=== PATIENT | female | born 1990 | race Caucasian/White ===

== ENCOUNTER 2016-02-20 20:45 | Observation (INO) | payer MEDICAID ==
[2016-02-20 21:04] LABS: Collection Type CLEAN CATCH
[2016-02-20 21:08] LABS: COMPLETE URINE MICROSCOPIC? YES
[2016-02-20 21:20] VITALS: BP 124/62; PULSE 100
[2016-02-20 21:34] LABS: Barbiturate,Urine NEG. (NEGATIVE); Methadone,Urine NEG. (NEGATIVE)
[2016-02-20 21:37] LABS: Bacteria RARE /HPF (NEGATIVE); Epithelial Cells MANY /HPF (FEW); WBC 0-2 /HPF (0-5)
== END 2016-02-20 22:05 | disposition home or self-care (01) ==
LOC: OB 20:45 → UNDOADMOB 20:45 → UNDODISOB 22:05
PROVIDERS: ADMIT Family Medicine; ATTEND Family Medicine
DX: Z34.83 Encounter for supervision of other normal pregnancy, third trimester (principal)
CPT/HCPCS: 81000; G0378

== ENCOUNTER 2016-02-21 14:38 | Observation (INO) | payer MEDICAID ==
[2016-02-21 14:56] VITALS: BP 129/60; PULSE 98
--- NOTE | 2016-02-21 16:55 | XRAY ---
Indication: lie and KESHIA. Limited OB ultrasound performed and compared to November 08, 2015. Again there is a single viable intrauterine now in cephalic presentation. Normal four-chamber heart with heart rate 132 bpm. Four-quadrant KESHIA is 21.1 cm, previously 12.8 cm. Comment: Preliminary report was given.
== END 2016-02-21 16:10 | disposition home or self-care (01) ==
LOC: OB 14:38
PROVIDERS: ADMIT Family Medicine; ATTEND Family Medicine
DX: Z34.83 Encounter for supervision of other normal pregnancy, third trimester (principal)
CPT/HCPCS: 59025; 76815; G0378

== ENCOUNTER 2016-02-26 16:04 | Observation (INO) | payer MEDICAID ==
[2016-02-26 16:43] VITALS: O2SAT 98
[2016-02-26 18:12] VITALS: PULSE 88
--- NOTE | 2016-02-26 20:24 | XRAY ---
Indication: well-being. Ultrasound biophysical profile study performed. Comparison: None There is a single viable injury uterine with heart rate 131 bpm. 4 quadrant KESHIA is 21.2 cm. Largest pocket is 6.6 cm. 2 points given for breathing, movements, tone, and amniotic fluid volume. Impression: Total biophysical profile score is 8 out of 8.
[2016-02-26 21:04] VITALS: BP 119/56
== END 2016-02-26 20:10 | disposition home or self-care (01) ==
LOC: OB 16:04 → UNDOADMOB 16:04 → UNDODISOB 20:10
PROVIDERS: ADMIT Family Medicine; ATTEND Family Medicine
DX: Z34.83 Encounter for supervision of other normal pregnancy, third trimester (principal)
CPT/HCPCS: 59025; 76819; G0378

== ENCOUNTER 2016-02-29 15:43 | Observation (INO) | payer MEDICAID ==
[2016-02-29 21:02] VITALS: BP 111/55; PULSE 92
== END 2016-02-29 20:35 | disposition home or self-care (01) ==
LOC: OB 15:43
PROVIDERS: ADMIT Family Medicine; ATTEND Family Medicine
DX: Z34.83 Encounter for supervision of other normal pregnancy, third trimester (principal)
CPT/HCPCS: 59025; G0378

== ENCOUNTER 2016-03-03 16:54 | Observation (INO) | payer MEDICAID ==
[2016-03-03 18:02] VITALS: BP 108/54; PULSE 90
--- NOTE | 2016-03-03 22:42 | XRAY ---
Indication: Size greater than dates. 2-dimensional OB ultrasound performed. Comparison: August 18, 2015 Again there is a single viable intrauterine in breech presentation. Normal four-chamber heart with heart rate of 131 bpm. Normal three-vessel cord and cord insertion. Images of the head, spine, stomach, kidneys, and bladder appear unremarkable. Placenta is again posterior fundal without abruption/previa. Cervical length measures 4.2 cm. BPD measures 9.07 cm corresponding to 36 weeks 5 days. HC measures 32.43 cm corresponding to 36 weeks 5 days. AC measures 32.15 cm corresponding to 36 weeks 0 days. FL measures 7.15 cm corresponding to 36 weeks 4 days. KESHIA is 19.4 cm. Impression: Again single viable intrauterine with mean gestational age of 36 weeks 4 days. Normal progression in the . No new/acute findings.
== END 2016-03-03 18:25 | disposition home or self-care (01) ==
LOC: MED SURG 16:54
PROVIDERS: ADMIT Family Medicine; ATTEND Family Medicine
DX: Z34.83 Encounter for supervision of other normal pregnancy, third trimester (principal)
CPT/HCPCS: 59025; 76805; G0378

== ENCOUNTER 2016-03-06 17:00 | Observation (INO) | payer MEDICAID ==
[2016-03-06 19:05] VITALS: BP 110/53; PULSE 86
== END 2016-03-06 18:30 | disposition home or self-care (01) ==
LOC: UNDOADMOB 17:00 → OB 17:00 → UNDODISOB 18:30
PROVIDERS: ADMIT Family Medicine; ATTEND Family Medicine
DX: Z34.83 Encounter for supervision of other normal pregnancy, third trimester (principal)
CPT/HCPCS: 59025; G0378

== ENCOUNTER 2016-03-10 16:16 | Observation (INO) | payer MEDICAID ==
[2016-03-10 16:43] VITALS: BP 127/60; PULSE 104
--- NOTE | 2016-03-10 19:46 | XRAY ---
Indication: Evaluate KESHIA. Comparison: March 03, 2016 Limited OB ultrasound again demonstrates a single viable intrauterine now in cephalic presentation. heart rate is 140 bpm. Visualized stomach and bladder unremarkable. Four-quadrant KESHIA is 18.6 cm, previously 19.4 cm. Comment: Preliminary report was given.
== END 2016-03-10 18:25 | disposition home or self-care (01) ==
LOC: OB 16:16
PROVIDERS: ADMIT Family Medicine; ATTEND Family Medicine
DX: Z34.03 Encounter for supervision of normal first pregnancy, third trimester (principal)
CPT/HCPCS: 59025; 76815; G0378

== ENCOUNTER 2016-03-13 14:05 | Observation (INO) | payer MEDICAID ==
[2016-03-13 16:07] VITALS: O2SAT 97
[2016-03-13 16:28] VITALS: BP 112/65; PULSE 86
== END 2016-03-13 16:35 | disposition home or self-care (01) ==
LOC: OB 14:05
PROVIDERS: ADMIT Family Medicine; ATTEND Family Medicine
DX: Z34.83 Encounter for supervision of other normal pregnancy, third trimester (principal)
CPT/HCPCS: 59025; G0378

== ENCOUNTER 2016-03-17 15:40 | Observation (INO) | payer MEDICAID ==
[2016-03-17 19:05] VITALS: BP 126/59; PULSE 96; O2SAT 96
--- NOTE | 2016-03-17 22:07 | XRAY ---
Indication: Evaluate KESHIA. 4 quadrant KESHIA is 20.4 cm. This was previously 18.6 cm on March 10, 2016 exam.
== END 2016-03-17 18:50 | disposition home or self-care (01) ==
LOC: OB 15:40
PROVIDERS: ADMIT Family Medicine; ATTEND Family Medicine
DX: Z34.83 Encounter for supervision of other normal pregnancy, third trimester (principal)
CPT/HCPCS: 59025; 76815; G0378

== ENCOUNTER 2016-03-20 15:32 | Observation (INO) | payer MEDICAID ==
[2016-03-20 16:53] VITALS: BP 107/72; PULSE 96
== END 2016-03-20 16:40 | disposition home or self-care (01) ==
LOC: OB 15:32 → UNDOADMOB 15:32 → UNDODISOB 16:40
PROVIDERS: ADMIT Family Medicine; ATTEND Family Medicine
DX: Z34.83 Encounter for supervision of other normal pregnancy, third trimester (principal)
CPT/HCPCS: 59025; G0378

== ENCOUNTER 2016-03-24 04:32 | Inpatient (IN) | payer MEDICAID ==
[2016-03-24] MEDS ORDERED: Reglan 10 MG/2 ML IV SCH (05:00)
[2016-03-24] MEDS ORDERED: BICITRA 30 ML CUP PO SCH (05:00)
[2016-03-24] MEDS ORDERED: Pepcid 20 MG VIAL IV SCH (05:00)
[2016-03-24] MEDS ORDERED: Lactated Ringers 1,000 ML IV SCH (05:00)
[2016-03-24 05:29] LABS: Mean Cell Volume 84.7 fl (78-100); Mean Corpuscular Hemoglobin 27.9 pg (26-32); Platelet Count 330 K/mm3 (150-450); Red Blood Count 4.37 M/mm3 (4.1-5.4); Red Cell Distribution Width 14.2 % (11.5-14.0)
[2016-03-24] MEDS ORDERED: Lactated Ringers 1,000 ML IV ONE ×2 (05:30→08:36)
[2016-03-24 05:43] LABS: INR 0.98 (0.8-3.0)
[2016-03-24 05:45] LABS: PTT 25.6 SECONDS (25.3-37.0)
[2016-03-24 06:33] LABS: Collection Type VOID
[2016-03-24 06:34] LABS: Bacteria MANY /HPF (NEGATIVE); CALCIUM OXALATE CRYSTALS 0-2 /HPF (NEGATIVE); COMPLETE URINE MICROSCOPIC? YES; Epithelial Cells MANY /HPF (FEW); Mucus MODERATE /HPF (NEGATIVE)
[2016-03-24] MEDS ORDERED: KEFZOL 1 GM ONE (08:04)
--- NOTE | 2016-03-24 09:12 | OP ---
SURGERY DATE: 03/24/16 SURGERY TIME: 739 PREOPERATIVE DIAGNOSIS: 1. TERM INTRAUTERINE . 2. PREVIOUS SECTION X 2. POSTOPERATIVE DIAGNOSIS: SAME, DELIVERED. PROCEDURE: 1. Repeat lower uterine segment transverse incision section. SURGEON: Dr. Pratt. ANESTHESIA: Spinal. BRIEF HISTORY: The patient is a 26 y/o WF presenting now for an elective repeat . The patient was appraised of the risks of the procedure including the risk of wound infection, bleeding requiring transfusion, and possible injury to intraabdominal organs. The patient verbalized her understanding and desired to have the procedure performed. DESCRIPTION OF PROCEDURE: The patient was prepped and draped in the supine position. After adequate regional anesthesia was confirmed, a Pfannenstiel incision was made over the previous scar and carried down sharply through the fascia which was then divided in a horizontal fashion. The rectus muscles were then sharply and bluntly dissected away from the overlying fascia. The peritoneal cavity was then entered. There was noted to be a very thin lower uterine segment. It was scored in its midline and extended using bandage scissors. A WM infant was delivered through the abdominal wound. The cord was doubly clamped and divided between the clamps and the baby was handed off for further care. The placenta was then manually removed from the uterus. The uterus was exteriorized and wrapped in moist gauze. The wound edges were then reapproximated using 1-0 chromic suture in a running, interlocking fashion. The cul-de-sac area was then swabbed clear of blood and amniotic fluid and the uterus was replaced in the abdominal cavity. Paracolic gutters were then also swabbed clear of blood and amniotic fluid. The peritoneum was then repaired using 3-0 chromic suture in a running fashion. The fascia was repaired using 0 Vicryl suture in a running fashion. The skin edges were reapproximated using geraldine. The sponge, needle, and instrument count was reported as correct at the end of the procedure. The patient was taken back to the recovery room. Estimated blood loss was 300 cc.
[2016-03-24] MEDS ORDERED: LANSINOH 40 GM TOP PRN (09:56)
[2016-03-24] MEDS ORDERED: CORTISONE 1% CREAM TP PRN (09:56)
[2016-03-24] MEDS ORDERED: Mylicon 80MG PO PRN (09:56)
[2016-03-24] MEDS ORDERED: CLARITIN 10 MG PO PRN (09:56)
[2016-03-24] MEDS ORDERED: Dulcolax 10 MG SUPP PR PRN (09:56)
[2016-03-24] MEDS ORDERED: Zofran 4 MG/2 ML VIAL IV PRN (09:56)
[2016-03-24] MEDS ORDERED: Narcan 0.4 MG/ML IV PRN (09:56)
[2016-03-24] MEDS ORDERED: Restoril 15 MG PO PRN (09:56)
[2016-03-24] MEDS ORDERED: HOLD NARCOTIC ANALGESICS AND SEDATIVES X24 HR MC PRN (09:56)
[2016-03-24] MEDS ORDERED: DEMEROL 50 MG IV PRN (09:56)
[2016-03-24] MEDS ORDERED: PERCOCET TABLET 5/325MG PO PRN (09:56)
[2016-03-24] MEDS ORDERED: BENADRYL 50 MG/ML IV PRN (09:56)
[2016-03-24] MEDS ORDERED: Anucort-HC SUPPOSITORY PR PRN (09:56)
[2016-03-24] MEDS ORDERED: Nubain 10 MG/ML IV PRN (09:56)
[2016-03-24] MEDS ORDERED: TYLENOL EXTRA STRENGTH 500 MG PO PRN (09:56)
[2016-03-24] MEDS ORDERED: MORPHINE SULFATE 2 MG INJ IV PRN (09:56)
[2016-03-24] MEDS: Dextrose 5%-Lr IV Solution 1000 ML 1,000 ML IV SCH ×2 (14:51→21:55)
[2016-03-24] MEDS: Colace 100 MG PO SCH (21:55)
[2016-03-25 05:29] LABS: BASOPHIL % 0.4 % (0.0-0.4); Eosinophil % 1.3 % (0.00-5.0); Granulocytes % 68.9 % (36.0-66.0); Lymphocytes % 21.1 % (24.0-44.0); Mean Cell Volume 86.9 fl (78-100); Mean Corpuscular Hemoglobin 27.8 pg (26-32); Mean Platelet Volume 9.7 fl (6-9.5); Monocytes % 8.3 % (0.0-12.0); Platelet Count 294 K/mm3 (150-450); Red Blood Count 4.06 M/mm3 (4.1-5.4); Red Cell Distribution Width 14.4 % (11.5-14.0); White Blood Count 12.7 K/mm3 (4.0-10.5)
[2016-03-25] MEDS: MOTRIN 400 MG PO PRN ×3 (08:40→21:58)
[2016-03-25] MEDS ORDERED: DEMEROL 75 MG IM PRN (09:00)
[2016-03-25] MEDS ORDERED: Phenergan 25 MG INJ IM PRN (09:00)
[2016-03-25] MEDS ORDERED: Ambien 10 MG PO PRN (09:56)
[2016-03-25] MEDS ORDERED: Tylenol #3 Tablet PO PRN (09:56)
[2016-03-25] MEDS: Colace 100 MG PO SCH ×2 (10:24→21:58)
[2016-03-25] MEDS: FERREX 150 PO SCH (10:24)
--- NOTE | 2016-03-26 09:29 | PCM.DS ---
Discharge Summary Date of Admission: 03/24/16 04:32 Admitting Physician: PERLA BRYANT Consults: Consults on Case 03/24/16 05:00 Notify Anesthesia Provider ROUTINE Notify Physician OF ADMISSION 03/24/16 09:56 Notify Anesthesia Provider PRN Primary Care Provider: PERLA BRYANT Allergies Allergies No Known Drug Allergies Allergy (Verified 03/17/16 16:05) Hospital Summary - Hospital Course Hospital Course: patient doing very well day #[address] Pratt , follows with Dr Bryant. no problems or concerns after delivery. ambulating and laura po, mild lochia - Vitals & Intake/Output Vital Signs: Vital Signs Temperature 98.0 F 03/25/16 20:00 Pulse Rate 80 03/25/16 20:00 Respiratory Rate 18 03/26/16 02:00 Blood Pressure 128/60 03/25/16 20:00 O2 Sat by Pulse Oximetry 97 03/25/16 08:00 Intake & Output: Intake & Output 03/23/16 03/24/16 03/25/16 03/26/16 11:59 11:59 11:59 11:59 Intake Total 2389 400 Output Total 1000 Balance 1389 400 Weight 110.677 kg - Lab Result Diagrams: 03/25/16 05:00 Micro Results-Entire Visit: Microbiology 03/24/16 07:56 Urine Culture - Preliminary Catherized NO GROWTH TO DATE Discharge Exam General Appearance: no apparent distress, alert Respiratory Exam: normal breath sounds, lungs clear, No respiratory distress Cardiovascular Exam: regular rate/rhythm, normal heart sounds Gastrointestinal/Abdomen Exam: soft, other (incision c/d/i, well approximated) Extremity Exam: normal inspection, normal range of motion Final Diagnosis/Problem List - Final Discharge Diagnosis/Problem (1) delivery delivered Current Visit: Yes Status: Acute Assessment & Plan: doing well - Discharge Disposition: Home, Self-Care Condition: Stable Prescriptions: Discontinued Vits W-Ca,Fe,FA(<1Mg) [] 1 tab PO DAILY Follow up with: PERLA BRYANT [Primary Care Provider] - 1 Week
[2016-03-26] MEDS: Colace 100 MG PO SCH (09:36)
[2016-03-26] MEDS: FERREX 150 PO SCH (09:37)
[2016-03-26] MEDS: MOTRIN 400 MG PO PRN (09:37)
[2016-03-26 11:06] VITALS: BP 116/53; PULSE 84; O2SAT 96
== END 2016-03-26 10:40 | disposition home or self-care (01) | DRG 766 ==
LOC: OB 04:32
PROVIDERS: ADMIT Family Medicine; ATTEND Family Medicine
PROC: 10D00Z1 Extraction of Products of Conception, Low, Open Approach (ICD-10-PCS; principal; 2016-03-24)
DX: O34.211 Maternal care for low transverse scar from previous cesarean delivery (principal); Z3A.39 39 weeks gestation of pregnancy; Z37.0 Single live birth
CPT/HCPCS: 01961; 36415; 59025; 76815; 80307; 81000; 85025; 85027; 85610; 85730; 86850; 86900; 86901; 87086; 94799; G0378; J0690; J2405; L0625

== ENCOUNTER 2019-01-26 10:59 | Emergency (ER) | payer OTHER ==
--- NOTE | 2019-01-26 11:06 | ERPHSYRPT ---
- History of Present Illness Time Seen by Provider: 01/26/19 11:05 Source: patient Exam Limitations: no limitations Physician History: 29 y/o A3 white female presents with one episode of vaginal spotting yesterday morning and a single episode of vaginal spotting this am. pt denies abdominal or vaginal pain. pt denies abnl vaginal discharge. Timing/Duration: yesterday Activites at Onset: none Quality: other Onset Location: other (no pain) Severity of Pain-Max: none Severity of Pain-Current: none Prior abdominal problems: none Sexual intercourse history: non-contributory Modifying Factors: Improves With: nothing Allergies/Adverse Reactions: No Known Drug Allergies Allergy (Verified 01/26/19 11:13) Home Medications: Vits W-Ca,Fe,FA(<1Mg) [] 1 each PO DAILY 01/26/19 [History] Hx Tetanus, Diphtheria Vaccination/Date Given: Yes Hx Influenza Vaccination/Date Given: No Hx Pneumococcal Vaccination/Date Given: No - Past Medical History Pertinent Past Medical History: No - Past Surgical History Past Surgical History: Yes Female Surgical History: Section Other Surgical History: X2 - Social History Smoking Status: Never smoker Exposure to second hand smoke: No Drug Use: none Patient Lives Alone: No Significant Family History: ULCERS - Nursing Vital Signs Nursing Vital Signs: Initial Vital Signs Temperature 98.6 F 01/26/19 11:07 Pulse Rate 104 H 01/26/19 11:07 Respiratory Rate 16 01/26/19 11:07 Blood Pressure 126/83 01/26/19 11:07 O2 Sat by Pulse Oximetry 100 01/26/19 11:07 Pain Scale Pain Intensity 0 - Course Nursing assessment & vital signs reviewed: Yes Ordered Tests: Active Orders 24 hr Category Date Time Status CBC W DIFF Stat Lab 01/26/19 11:32 Completed CMP Stat Lab 01/26/19 11:32 Completed CULTURE,URINE Stat Lab 01/26/19 11:55 Received HCG, Quantitative (Inhouse) Stat Lab 01/26/19 11:32 Received UA W/RFX UR CULTURE Stat Lab 01/26/19 11:55 Completed Lab/Rad Data: Laboratory Result Diagrams 01/26/19 11:32 01/26/19 11:32 Laboratory Results 01/26/19 01/26/19 12 Range/Units 11:55 11:32 11:32 WBC 9.9 (4.0-10.5) K/mm3 RBC 4.27 (4.1-5.4) M/mm3 Hgb 13.3 (12.0-16.0) gm/dl Hct 39.5 (35-47) % MCV 92.5 (78-100) fl MCH 31.1 (26-32) pg MCHC 33.7 (32-36) g/dl RDW 12.8 (11.5-14.0) % Plt Count 341 (150-450) K/mm3 MPV 9.4 (6-9.5) fl Gran % 70.6 H (36.0-66.0) % Eos # (Auto) 0.20 (0-0.5) Absolute Lymphs (auto) 2.09 (1.0-4.6) Absolute Monos (auto) 0.59 (0.0-1.3) Lymphocytes % 21.2 L (24.0-44.0) % Monocytes % 6.0 (0.0-12.0) % Eosinophils % 2.0 (0.00-5.0) % Basophils % 0.2 (0.0-0.4) % Absolute Granulocytes 6.97 H (1.4-6.9) Basophils # 0.02 (0-0.4) Sodium 138 (137-145) mmol/L Potassium 4.4 (3.5-5.1) mmol/L Chloride 105 (98-107) mmol/L Carbon Dioxide 26 (22-30) mmol/L Anion Gap 11.5 (5-15) MEQ/L BUN 9 (7-17) mg/dL Creatinine 0.56 (0.52-1.04) mg/dL Estimated GFR > 60.0 ML/MIN Glucose 101 (74-106) mg/dL Calcium 9.2 (8.4-10.2) mg/dL Total Bilirubin 0.50 (0.2-1.3) mg/dL AST 21 (14-36) U/L ALT 10 (0-35) U/L Alkaline Phosphatase 67 (38-126) U/L Serum Total Protein 7.2 (6.3-8.2) g/dL Albumin 3.8 (3.5-5.0) g/dL Urine Color YELLOW (YELLOW) Urine Appearance SLIGHTLY CLOUDY (CLEAR) Urine pH 6.0 (5-6) Ur Specific [place] 1.019 (1.005-1.025) Urine Protein NEGATIVE (Negative) Urine Ketones NEGATIVE (NEGATIVE) Urine Blood MODERATE (0-5) William/ul Urine Nitrite NEGATIVE (NEGATIVE) Urine Bilirubin NEGATIVE (NEGATIVE) Urine Urobilinogen 2 (0-1) mg/dL Ur Leukocyte Esterase SMALL (NEGATIVE) Urine WBC (Auto) 6-10 (0-5) /HPF Urine RBC (Auto) 0-2 (0-2) /HPF U Epithel Cells (Auto) FEW (FEW) /HPF Urine Bacteria (Auto) NONE (NEGATIVE) /HPF Urine Mucus (Auto) SLIGHT (NEGATIVE) /HPF Urine Culture Reflexed YES (NO) Urine Glucose NEGATIVE (NEGATIVE) mg/dL - Progress Progress: unchanged Air Movement: good Blood Culture(s) Obtained: No Antibiotics given: No Counseled pt/family regarding: lab results, diagnosis, need for follow-up - Departure Departure Disposition: Home Clinical Impression: Vaginal spotting Condition: Stable Critical Care Time: No Referrals: HÉCTOR LEUNG MD [Primary Care Provider] - Additional Instructions: take medications as prescribed. follow up with shop director for further management Prescriptions: Cephalexin Mh 500 mg [Keflex 500 mg] 500 mg PO TID #21 capsule
[2019-01-26 11:37] LABS: Absolute Neutrophil Ct (ANC) 6.97 (1.4-6.9); BASOPHIL % 0.2 % (0.0-0.4); Basophil (Absolute #) 0.02 (0-0.4); Hematocrit 39.5 % (35-47); Hemoglobin 13.3 gm/dl (12.0-16.0); Lymphocyte (Absolute #) 2.09 (1.0-4.6); Lymphocytes % 21.2 % (24.0-44.0); Mean Cell Volume 92.5 fl (78-100); Mean Corpuscular Hemoglobin 31.1 pg (26-32); Mean Corpuscular Hgb Concent. 33.7 g/dl (32-36); Mean Platelet Volume 9.4 fl (6-9.5); Monocyte (Absolute #) 0.59 (0.0-1.3); Neutrophil % 70.6 % (36.0-66.0); Platelet Count 341 K/mm3 (150-450); Red Blood Count 4.27 M/mm3 (4.1-5.4); Red Cell Distribution Width 12.8 % (11.5-14.0); White Blood Count 9.9 K/mm3 (4.0-10.5)
[2019-01-26 11:50] LABS: ALBUMIN 3.8 g/dL (3.5-5.0); ALKALINE PHOSPHATASE 67 U/L (38-126); ANION GAP 11.5 MEQ/L (5-15); BLOOD UREA NITROGEN 9 mg/dL (7-17); CHLORIDE 105 mmol/L (98-107); Calcium 9.2 mg/dL (8.4-10.2); Carbon Dioxide 26 mmol/L (22-30); Creatinine 1 0.56 mg/dL (0.52-1.04); Glucose 101 mg/dL (74-106); Potassium 4.4 mmol/L (3.5-5.1); SGOT/AST 21 U/L (14-36); SGPT/ALT 10 U/L (0-35); SODIUM 138 mmol/L (137-145); Total Protein 7.2 g/dL (6.3-8.2)
[2019-01-26 12:07] LABS: Appearance SLIGHTLY CLOUDY (CLEAR); Bilirubin NEGATIVE (NEGATIVE); Blood MODERATE Ery/ul (0-5); Epithelial Cells FEW /HPF (FEW); Glucose NEGATIVE (NEGATIVE); Ketones NEGATIVE (NEGATIVE); Leukocyte Esterase SMALL (NEGATIVE); Mucus SLIGHT /HPF (NEGATIVE); Nitrite NEGATIVE (NEGATIVE); Protein,Urine Dip NEGATIVE (Negative); RBC 0-2 /HPF (0-2); Specific Gravity 1.019 (1.005-1.025); Urobilinogen 2 mg/dL (0-1)
[2019-01-26] MEDS ORDERED: KEFLEX 500 MG PO ONE ×2 (13:01→13:13)
[2019-01-26] MEDS ORDERED: KEFLEX 500 MG ONE ×2 (13:04→13:16)
[2019-01-26 13:13] VITALS: BP 115/59; PULSE 84; O2SAT 99
== END 2019-01-26 13:21 | disposition home or self-care (01) ==
LOC: ED 10:59
DX: O20.9 Hemorrhage in early pregnancy, unspecified (principal); Z3A.08 8 weeks gestation of pregnancy; O23.41 Unspecified infection of urinary tract in pregnancy, first trimester
CPT/HCPCS: 36415; 80053; 81001; 84702; 85025; 87086; 99283; A9270-GY

== ENCOUNTER 2019-04-10 17:17 | Inpatient (IN) | payer OTHER ==
[2019-04-10] MEDS ORDERED: OB EPIDURAL NAROPIN/SUFENTANIL IN NACL EPIDURAL PRN (17:27)
[2019-04-10] MEDS: CYTOTEC BC SCH ×2 (21:05→21:26)
[2019-04-10 21:40] LABS: Absolute Neutrophil Ct (ANC) 12.23 (1.4-6.9); BASOPHIL % 0.1 % (0.0-0.4); Basophil (Absolute #) 0.02 (0-0.4); Eosinophil % 0.9 % (0.00-5.0); Eosinophil (Absolute #) 0.14 (0-0.5); Hematocrit 37.5 % (35-47); Hemoglobin 13.1 gm/dl (12.0-16.0); Lymphocyte (Absolute #) 2.22 (1.0-4.6); Lymphocytes % 14.6 % (24.0-44.0); Mean Cell Volume 91.7 fl (78-100); Mean Corpuscular Hgb Concent. 34.9 g/dl (32-36); Mean Platelet Volume 9.8 fl (7.5-11.0); Monocyte (Absolute #) 0.61 (0.0-1.3); Neutrophil % 80.4 % (36.0-66.0); Platelet Count 369 K/mm3 (150-450); Red Blood Count 4.09 M/mm3 (4.1-5.4); Red Cell Distribution Width 13.5 % (11.5-14.0); White Blood Count 15.2 K/mm3 (4.0-10.5)
[2019-04-10 21:58] LABS: ALBUMIN 3.7 g/dL (3.5-5.0); ALKALINE PHOSPHATASE 85 U/L (38-126); ANION GAP 10.3 MEQ/L (5-15); BLOOD UREA NITROGEN 5 mg/dL (7-17); CHLORIDE 107 mmol/L (98-107); Calcium 9.5 mg/dL (8.4-10.2); Carbon Dioxide 23 mmol/L (22-30); Creatinine 1 0.44 mg/dL (0.52-1.04); Glucose 85 mg/dL (74-106); Potassium 3.6 mmol/L (3.5-5.1); SGOT/AST 17 U/L (14-36); SGPT/ALT 8 U/L (0-35); SODIUM 136 mmol/L (137-145); Total Protein 7.4 g/dL (6.3-8.2)
[2019-04-10] MEDS: Zofran 4 MG/2 ML VIAL IV SCH (23:48)
[2019-04-11] MEDS: Zofran 4 MG/2 ML VIAL IV SCH ×4 (00:40→10:09)
[2019-04-11 00:59] LABS: Amphetamine,Urine NEGATIVE (NEGATIVE); Barbiturate,Urine NEGATIVE (NEGATIVE); Benzodiazepine,Urine NEGATIVE (NEGATIVE); Cocaine,Urine NEGATIVE (NEGATIVE); Methadone,Urine NEGATIVE (NEGATIVE); Opiate,Urine NEGATIVE (NEGATIVE); PCP,Urine NEGATIVE (NEGATIVE); THC,Urine NEGATIVE (NEGATIVE)
[2019-04-11] MEDS: CYTOTEC BC SCH ×4 (02:23→15:14)
[2019-04-11] MEDS: MORPHINE SULFATE 4 MG INJ IV PRN ×2 (02:57→10:09)
[2019-04-11] MEDS ORDERED: PITOCIN 30 UNITS/ LR 500 ML 500 ML IV ONE (03:59)
[2019-04-11] MEDS ORDERED: Lactated Ringers 1,000 ML IV ONE ×2 (07:50→19:39)
[2019-04-11] MEDS: SUBLIMAZE 100 MCG/2 ML IV PRN ×2 (08:40→11:32)
[2019-04-11] MEDS: Lactated Ringers 1,000 ML IV SCH ×3 (08:55→17:13)
[2019-04-11] MEDS ORDERED: PITOCIN 30 UNITS/ LR 500 ML 500 ML IV SCH (10:00)
[2019-04-11] MEDS ORDERED: CLINDAMYCIN-D5W 600 MG/50 ML*** 600 MG/50 ML BAG IV SCH (13:15)
[2019-04-11] MEDS ORDERED: BICITRA 30 ML CUP PO ONE (17:01)
[2019-04-11] MEDS ORDERED: Pepcid 20 MG VIAL IV ONE (17:01)
[2019-04-11] MEDS ORDERED: Reglan 10 MG/2 ML IV ONE (17:01)
[2019-04-11] MEDS ORDERED: CEFAZOLIN 2 GM-D5W BAG** 2 GM/50 ML ML IV SCH (17:30)
[2019-04-11 18:34] LABS: ABO TYPING A; Antibody Screen NEGATIVE (NEGATIVE); RH TYPING POSITIVE
[2019-04-11] MEDS ORDERED: Versed 2 MG/2 ML Injection ONE (19:31)
[2019-04-11] MEDS ORDERED: DIPRIVAN 200 MG/20 ML IV ONE (19:32)
[2019-04-11] MEDS ORDERED: Xylocaine-Mpf 2% 5 Ml Vial ONE (19:37)
[2019-04-11] MEDS ORDERED: XYLOCAINE 2%/Epi 1:200000 20ML VIAL MPF ONE (19:37)
[2019-04-11] MEDS ORDERED: Pitocin 10 UNITS/ML ONE ×2 (19:57)
[2019-04-11] MEDS ORDERED: PHENYLEPHRINE HCL ONE (20:00)
[2019-04-11] MEDS ORDERED: DEMEROL 50 MG ONE (20:20)
[2019-04-11 20:51] LABS: Hematocrit 29.8 % (35-47)
[2019-04-11 20:52] LABS: Hemoglobin 10.2 gm/dl (12.0-16.0)
[2019-04-11 21:52] VITALS: O2SAT 98
[2019-04-12] MEDS ORDERED: Pitocin 10 UNITS/ML IV PRN (09:45)
[2019-04-12] MEDS: Lactated Ringers 1,000 ML IV SCH (09:48)
[2019-04-12 10:06] VITALS: BP 96/52; PULSE 85
--- NOTE | 2019-04-14 10:27 | OP ---
SURGERY DATE/TIME: 04/11/20191926 PREOPERATIVE DIAGNOSIS: Retained placenta after 17 weeks gestation delivery from demise. POSTOPERATIVE DIAGNOSIS: Retained placenta. PROCEDURE: Ultrasound guided extraction of placenta with D&C with suction. SURGEON: Ernesto Martinez D.O. BURGLARY INVESTIGATOR: power lineman technician. ANESTHESIA: General. ESTIMATED BLOOD LOSS: 200 cc. COMPLICATIONS: None. INDICATIONS: The risks, benefits, indications and alternatives of the procedure were reviewed with the patient prior to procedure. The patient understood the risk of infection, bleeding, bowel injury, bladder injury, ureteral injury, uterine perforation, pelvic infection, thromboembolic disorder associated with the surgery and desires to have this procedure as a possible means to alleviate her current medical condition. DESCRIPTION OF PROCEDURE AND FINDINGS: At this point the patient is taken to the operating room, given general sedation, placed in dorsal lithotomy position. Prepped and draped in the usual sterile fashion. From this point ultrasound was used and was placed over the suprapubic region where visualization revealed her to have an anterior placenta. From this point a weighted speculum is then placed in the patient's vagina and the anterior lip of the cervix is grasped with a single tooth tenaculum. Cervix appeared to be dilated approximately 1 cm and at this point the placenta was noted to be just distal to the external os. Forceps were used and placed on just distal edge of the placenta and was grasped at two different sites and was pulled very gently where it had been followed from the umbilical cord towards the edge of the external os. From this point I continued gentle traction using the ring forceps. The placenta was removed however not in its entirety. From this point a #12 curved suction Vacurette was then placed into the fundus of the uterus. After placing the suction Vacurette, it appeared that the patient had a nonsmooth contour where it was approximately 5 x 6 cm in posterior surface mass-like consistency as well as 3 to 4 cm mass-like consistency on her left fundal region. Suction Vacurette was continued until all the products of conception was removed. The suction Vacurette was then removed and curette was then placed into the fundus of the uterus and curettage was performed in all quadrants of the uterus retrieving the remaining products of conception. From this point there was no bleeding that was noted coming from her cervix. From this point the suction machine was turned off. All instruments were then removed from the patient's vaginal region. The patient was then taken out of the dorsal lithotomy position. The patient was taken out of anesthesia and was taken to the recovery room in stable condition. All instruments and laps were accounted for x2.
== END 2019-04-12 08:53 | disposition home or self-care (01) | DRG 770 ==
LOC: MED SURG 18:49
PROVIDERS: ADMIT Family Medicine; ATTEND Family Medicine
PROC: 10D17ZZ Extraction of Products of Conception, Retained, Via Natural or Artificial Opening (ICD-10-PCS; principal; 2019-04-11)
DX: O03.4 Incomplete spontaneous abortion without complication (principal)
CPT/HCPCS: 36415; 76805; 80053; 80307; 85014; 85018; 85025; 86850; 86900; 86901; 88307; J0690; J2175; J2250; J2270; J2370; J2405; J2590; J2704; J2795; J3010; A9270-GY

== ENCOUNTER 2020-04-21 16:01 | Observation (INO) | payer OTHER ==
[2020-04-21 17:40] VITALS: BP 127/58; PULSE 106
== END 2020-04-21 17:23 | disposition home or self-care (01) ==
LOC: OB 16:01
PROVIDERS: ADMIT Obstetrics & Gynecology; ATTEND Obstetrics & Gynecology
DX: Z34.83 Encounter for supervision of other normal pregnancy, third trimester (principal); Z3A.32 32 weeks gestation of pregnancy
CPT/HCPCS: 59025; G0378

== ENCOUNTER 2020-04-30 16:06 | Observation (INO) | payer OTHER ==
[2020-04-30 17:03] VITALS: BP 120/59; PULSE 82
== END 2020-04-30 17:02 | disposition home or self-care (01) ==
LOC: OB 16:06
PROVIDERS: ADMIT Family Medicine; ATTEND Family Medicine
DX: O24.419 Gestational diabetes mellitus in pregnancy, unspecified control (principal); Z3A.33 33 weeks gestation of pregnancy
CPT/HCPCS: 59025; G0378

== ENCOUNTER 2020-05-06 14:10 | Observation (INO) | payer OTHER ==
[2020-05-06 14:36] VITALS: BP 131/59; PULSE 101
== END 2020-05-06 15:20 | disposition home or self-care (01) ==
LOC: OB 14:10 → UNDOADMOB 14:10 → UNDODISOB 15:20
PROVIDERS: ADMIT Obstetrics & Gynecology; ATTEND Obstetrics & Gynecology
DX: O24.419 Gestational diabetes mellitus in pregnancy, unspecified control (principal); Z3A.34 34 weeks gestation of pregnancy
CPT/HCPCS: 59025; G0378

== ENCOUNTER 2020-05-14 15:52 | Observation (INO) | payer OTHER ==
[2020-05-14 16:15] VITALS: PULSE 99
[2020-05-14 16:55] VITALS: BP 118/73
== END 2020-05-14 16:53 | disposition home or self-care (01) ==
LOC: OB 15:52
PROVIDERS: ADMIT Obstetrics & Gynecology; ATTEND Obstetrics & Gynecology
DX: O24.419 Gestational diabetes mellitus in pregnancy, unspecified control (principal); Z3A.35 35 weeks gestation of pregnancy
CPT/HCPCS: 59025; G0378

== ENCOUNTER 2020-05-19 16:24 | Observation (INO) | payer OTHER ==
[2020-05-19 17:40] VITALS: BP 118/56; PULSE 82
== END 2020-05-19 17:19 | disposition home or self-care (01) ==
LOC: OB 16:24
PROVIDERS: ADMIT Obstetrics & Gynecology; ATTEND Obstetrics & Gynecology
DX: O24.419 Gestational diabetes mellitus in pregnancy, unspecified control (principal); Z3A.36 36 weeks gestation of pregnancy
CPT/HCPCS: 59025; G0378

== ENCOUNTER 2020-05-20 04:51 | Inpatient (IN) | payer OTHER ==
[2020-05-20 05:34] LABS: Amphetamine,Urine NEGATIVE (NEGATIVE); Barbiturate,Urine NEGATIVE (NEGATIVE); Benzodiazepine,Urine NEGATIVE (NEGATIVE); Cocaine,Urine NEGATIVE (NEGATIVE); Methadone,Urine NEGATIVE (NEGATIVE); Opiate,Urine NEGATIVE (NEGATIVE); PCP,Urine NEGATIVE (NEGATIVE); THC,Urine NEGATIVE (NEGATIVE)
[2020-05-20] MEDS ORDERED: SOD CITRATE-CITRIC ACID SOLN PO ONE (08:13)
[2020-05-20] MEDS ORDERED: Reglan 10 MG/2 ML IV SCH (08:15)
[2020-05-20] MEDS ORDERED: Pepcid 20 MG VIAL IV SCH (08:15)
[2020-05-20] MEDS ORDERED: Celestone Soluspan 6MG/ML IM ONE (08:22)
[2020-05-20] MEDS ORDERED: CEFAZOLIN 2 GM-D5W BAG** 2 GM/50 ML ML IV SCH (08:30)
[2020-05-20] MEDS ORDERED: Lactated Ringers 1,000 ML IV SCH (08:30)
[2020-05-20] MEDS ORDERED: Astramorph-Pf 5 MG/10 ML ONE (08:40)
[2020-05-20] MEDS ORDERED: Pitocin 10 UNITS/ML ONE ×2 (08:40→10:37)
[2020-05-20 08:58] LABS: INR 1.09 (0.8-3.0); PROTIME 12.3 SECONDS (9.95-12.35)
[2020-05-20 09:00] LABS: PTT 27.1 SECONDS (25.3-37.0)
[2020-05-20 09:01] LABS: Hematocrit 32.8 % (35-47); Hemoglobin 10.5 gm/dl (12.0-16.0); Mean Cell Volume 86.5 fl (78-100); Mean Corpuscular Hemoglobin 27.7 pg (26-32); Mean Platelet Volume 9.7 fl (7.5-11.0); Platelet Count 366 K/mm3 (150-450); Red Blood Count 3.79 M/mm3 (4.1-5.4); Red Cell Distribution Width 14.1 % (11.5-14.0); White Blood Count 14.8 K/mm3 (4.0-10.5)
[2020-05-20 09:37] LABS: ABO TYPING A; Antibody Screen NEGATIVE (NEGATIVE); RH TYPING POSITIVE
[2020-05-20] MEDS ORDERED: PHENYLEPHRINE HCL ONE (09:48)
[2020-05-20] MEDS ORDERED: MARCAINE 0.5%-EPI 1:200,000 VL IJ ONE (10:03)
[2020-05-20] MEDS ORDERED: Marcaine 0.5%/Epinephrine 10 ML ONE (10:03)
[2020-05-20 11:39] LABS: Appearance CLEAR (CLEAR); Bilirubin NEGATIVE (NEGATIVE); Blood NEGATIVE Ery/ul (0-5); Epithelial Cells FEW /HPF (FEW); Glucose NEGATIVE (NEGATIVE); Ketones NEGATIVE (NEGATIVE); Leukocyte Esterase NEGATIVE (NEGATIVE); Mucus SLIGHT /HPF (NEGATIVE); Nitrite NEGATIVE (NEGATIVE); Protein,Urine Dip NEGATIVE (Negative); Specific Gravity 1.013 (1.005-1.025); Urobilinogen NEGATIVE mg/dL (0-1)
[2020-05-20] MEDS: CEFAZOLIN 2 GM-D5W BAG** 2 GM/50 ML ML IV SCH ×2 (14:28→22:17)
[2020-05-20] MEDS: Dextrose 5%-Lr IV Solution 1000 ML 1,000 ML IV SCH ×2 (14:30→22:15)
[2020-05-20] MEDS ORDERED: MOTRIN 400 MG PO PRN (14:51)
[2020-05-20] MEDS ORDERED: Dermoplast Spray TP PRN (14:51)
[2020-05-20] MEDS ORDERED: Dulcolax 10 MG SUPP PR PRN (14:51)
[2020-05-20] MEDS ORDERED: LANSINOH 40 GM TOP PRN (14:51)
[2020-05-20] MEDS ORDERED: CORTISONE 1% CREAM TP PRN (14:51)
[2020-05-20] MEDS ORDERED: TYLENOL EXTRA STRENGTH 500 MG PO PRN (14:51)
[2020-05-20] MEDS ORDERED: NORCO 5/325 MG PO PRN (14:51)
[2020-05-20] MEDS ORDERED: Mylicon 80MG PO PRN (14:51)
[2020-05-20] MEDS ORDERED: Anucort-HC SUPPOSITORY PR PRN (14:51)
[2020-05-20] MEDS ORDERED: BENADRYL 50 MG/ML IV PRN (14:57)
[2020-05-20] MEDS ORDERED: Zofran 4 MG/2 ML VIAL IV PRN (14:57)
[2020-05-20] MEDS ORDERED: MORPHINE SULFATE 2 MG INJ IV PRN (14:57)
[2020-05-20] MEDS ORDERED: CLARITIN 10 MG PO PRN (14:57)
[2020-05-20] MEDS ORDERED: HOLD NARCOTIC ANALGESICS AND SEDATIVES X24 HR MC PRN (14:57)
[2020-05-20] MEDS ORDERED: Nubain 10 MG/ML IV PRN (14:57)
[2020-05-20] MEDS ORDERED: Narcan 0.4 MG/ML IV PRN (14:57)
[2020-05-20] MEDS ORDERED: PERCOCET TABLET 5/325MG PO PRN (14:57)
[2020-05-20] MEDS ORDERED: DEMEROL 50 MG IV PRN (14:57)
[2020-05-20] MEDS ORDERED: Compazine 10 MG/2 ML IV PRN (18:00)
[2020-05-20] MEDS ORDERED: Sodium Chloride 0.9% 10 ML FLUSH Syringe IJ SCH (22:00)
[2020-05-20] MEDS: Colace 100 MG PO SCH (22:17)
[2020-05-21 05:25] LABS: Absolute Neutrophil Ct (ANC) 14.31 (1.4-6.9); BASOPHIL % 0.2 % (0.0-0.4); Basophil (Absolute #) 0.03 (0-0.4); Eosinophil % 0.1 % (0.00-5.0); Eosinophil (Absolute #) 0.01 (0-0.5); Hematocrit 32.2 % (35-47); Hemoglobin 10.2 gm/dl (12.0-16.0); Lymphocyte (Absolute #) 2.15 (1.0-4.6); Lymphocytes % 12.3 % (24.0-44.0); Mean Corpuscular Hemoglobin 27.9 pg (26-32); Mean Corpuscular Hgb Concent. 31.7 g/dl (32-36); Mean Platelet Volume 9.9 fl (7.5-11.0); Monocyte (Absolute #) 0.98 (0.0-1.3); Monocytes % 5.6 % (0.0-12.0); Neutrophil % 81.8 % (36.0-66.0); Platelet Count 375 K/mm3 (150-450); Red Blood Count 3.66 M/mm3 (4.1-5.4); Red Cell Distribution Width 14.1 % (11.5-14.0); White Blood Count 17.5 K/mm3 (4.0-10.5)
[2020-05-21] MEDS ORDERED: ENOXAPARIN SODIUM SQ SCH (08:00)
--- NOTE | 2020-05-21 08:02 | PCM.NOTE ---
Date and Time: 05/21/20 0800 Subjective Assessment: pod 1 sp csection pt resting in bed and doing well. vss afebrile abd; soft incision c/d/intact uterus; firm lochia; mild hgb; 10 a/p sp csection pod 1 cpm encourage ambulation today OBJECTIVE DATA Vital Signs: Vital Signs - 24 hr Temp Pulse Resp BP Pulse Ox 05/21/20 07:00 100 05/21/20 06:00 99 05/21/20 05:30 97 F 76 18 99/59 100 05/21/20 05:00 99 05/21/20 04:00 98 05/21/20 03:00 98 05/21/20 02:00 99 05/21/20 01:00 98.4 F 76 16 109/60 99 05/21/20 00:00 98 05/20/20 23:00 99 05/20/20 22:00 100 05/20/20 21:00 98.1 F 74 13 113/56 97 05/20/20 20:00 99 05/20/20 17:04 98.4 F 93 H 20 122/59 05/20/20 13:38 98.4 F 93 H 20 122/59 05/20/20 11:10 98.4 F 105 H 18 113/56 05/20/20 08:53 98.2 F 89 16 115/57 Pain Assessment - Last Documented Pain Intensity 0 Intake and Output: Intake & Output 05/18/20 05/19/20 05/20/20 05/21/20 11:59 11:59 11:59 11:59 Intake Total 3364 Output Total 1725 Balance 1639 Weight 112.945 kg 112.945 kg Lab Results: Lab Results-Last 24 Hours 05/20/20 05/20/20 05/20/20 Range/Units 08:38 08:38 08:38 WBC 14.8 H (4.0-10.5) K/mm3 RBC 3.79 L (4.1-5.4) M/mm3 Hgb 10.5 L (12.0-16.0) gm/dl Hct 32.8 L (35-47) % MCV 86.5 (78-100) fl MCH 27.7 (26-32) pg MCHC 32.0 (32-36) g/dl RDW 14.1 H (11.5-14.0) % Plt Count 366 (150-450) K/mm3 MPV 9.7 (7.5-11.0) fl Gran % (36.0-66.0) % Eos # (Auto) (0-0.5) Absolute Lymphs (auto) (1.0-4.6) Absolute Monos (auto) (0.0-1.3) Lymphocytes % (24.0-44.0) % Monocytes % (0.0-12.0) % Eosinophils % (0.00-5.0) % Basophils % (0.0-0.4) % Absolute Granulocytes (1.4-6.9) Basophils # (0-0.4) PT 12.3 (9.95-12.35) SECONDS INR 1.09 (0.8-3.0) APTT 27.1 (25.3-37.0) SECONDS POC Glucometer (74 to 106) mg/dL Urine Color (YELLOW) Urine Appearance (CLEAR) Urine pH (5-6) Ur Specific [place] (1.005-1.025) Urine Protein (Negative) Urine Ketones (NEGATIVE) Urine Blood (0-5) William/ul Urine Nitrite (NEGATIVE) Urine Bilirubin (NEGATIVE) Urine Urobilinogen (0-1) mg/dL Ur Leukocyte Esterase (NEGATIVE) Urine WBC (Auto) (0-5) /HPF Urine RBC (Auto) (0-2) /HPF U Epithel Cells (Auto) (FEW) /HPF Urine Bacteria (Auto) (NEGATIVE) /HPF Urine Mucus (Auto) (NEGATIVE) /HPF Urine Glucose (NEGATIVE) mg/dL ABO Group A Rh Factor POSITIVE Antibody Screen NEGATIVE (NEGATIVE) 05/20/20 05/20/20 05/21/20 Range/Units 09:20 09:45 04:30 WBC 17.5 H (4.0-10.5) K/mm3 RBC 3.66 L (4.1-5.4) M/mm3 Hgb 10.2 L (12.0-16.0) gm/dl Hct 32.2 L (35-47) % MCV 88.0 (78-100) fl MCH 27.9 (26-32) pg MCHC 31.7 L (32-36) g/dl RDW 14.1 H (11.5-14.0) % Plt Count 375 (150-450) K/mm3 MPV 9.9 (7.5-11.0) fl Gran % 81.8 H (36.0-66.0) % Eos # (Auto) 0.01 (0-0.5) Absolute Lymphs (auto) 2.15 (1.0-4.6) Absolute Monos (auto) 0.98 (0.0-1.3) Lymphocytes % 12.3 L (24.0-44.0) % Monocytes % 5.6 (0.0-12.0) % Eosinophils % 0.1 (0.00-5.0) % Basophils % 0.2 (0.0-0.4) % Absolute Granulocytes 14.31 H (1.4-6.9) Basophils # 0.03 (0-0.4) PT (9.95-12.35) SECONDS INR (0.8-3.0) APTT (25.3-37.0) SECONDS POC Glucometer 92 (74 to 106) mg/dL Urine Color YELLOW (YELLOW) Urine Appearance CLEAR (CLEAR) Urine pH 6.0 (5-6) Ur Specific [place] 1.013 (1.005-1.025) Urine Protein NEGATIVE (Negative) Urine Ketones NEGATIVE (NEGATIVE) Urine Blood NEGATIVE (0-5) William/ul Urine Nitrite NEGATIVE (NEGATIVE) Urine Bilirubin NEGATIVE (NEGATIVE) Urine Urobilinogen NEGATIVE (0-1) mg/dL Ur Leukocyte Esterase NEGATIVE (NEGATIVE) Urine WBC (Auto) 3-5 (0-5) /HPF Urine RBC (Auto) 3-5 (0-2) /HPF U Epithel Cells (Auto) FEW (FEW) /HPF Urine Bacteria (Auto) NONE (NEGATIVE) /HPF Urine Mucus (Auto) SLIGHT (NEGATIVE) /HPF Urine Glucose NEGATIVE (NEGATIVE) mg/dL ABO Group Rh Factor Antibody Screen (NEGATIVE)
--- NOTE | 2020-05-21 09:15 | OP ---
SURGERY DATE/TIME: 05/20/2020 0928 PREOPERATIVE DIAGNOSIS: Intrauterine at 36 weeks and 3 days gestation with previous section x3 with continued pelvic pain and threatened labor. POSTOPERATIVE DIAGNOSIS: Intrauterine at 36 weeks and 3 days gestation with previous section x3 with continued pelvic pain and threatened labor, with nuchal cord x2. PROCEDURE: Repeat section, low flap transverse uterine incision, Pfannenstiel skin incision. SURGEON: Ernesto Martinez D.O. PHYSICIAN ASST: Shefali Sanabria surgical services manager. ANESTHESIA: Spinal. ESTIMATED BLOOD LOSS: 800 cc. COMPLICATIONS: None. INDICATIONS: The risks, benefits, indications and alternatives of the procedure were reviewed with the patient prior to procedure. The patient understood the risk of infection, bleeding, bowel injury, bladder injury, ureteral injury, incisional hernia associated with the surgery as well as pelvic infection, thromboembolic disorder that may be associated with this procedure. However desires to have this procedure as a possible means to alleviate her current medical condition. DESCRIPTION OF PROCEDURE AND FINDINGS: At this point the patient is taken to the operating room where her spinal anesthesia was found to adequate. She was then prepared and draped in the normal sterile fashion in the dorsal supine position with a leftward tilt. A Pfannenstiel skin incision is made with a scalpel and carried through to the underlying layer of the fascia with a Bovie. The fascia was then incised in the midline and the incision extended laterally with Cral scissors. The superior aspect of the fascial incision was then grasped with Mundo clamps elevated and the underlying rectus muscles dissected off bluntly. Attention is then turned to the inferior aspect of this incision which in similar fashion was grasped, tented up with Mundo clamps and the rectus muscles dissected off bluntly. The rectus muscles were then at the midline and the peritoneum identified, tented up and entered sharply with Metzenbaum scissors. The peritoneal incision was then extended superiorly and inferiorly with good visualization of the bladder. The bladder blade was then inserted and the vesicouterine peritoneum identified, grasped with a pickup and entered sharply with Metzenbaum scissors. This incision was then extended laterally and bladder flap created digitally. The bladder blade was then re-inserted and the lower uterine segment incised in transverse fashion with a scalpel. The lower segment appeared to be within normal limits and did not appear to have a thin lower segment. The uterine incision was then extended laterally with bandage scissors. The bladder blade was then removed and infant's head was delivered atraumatically with nuchal cord x2 which was reduced. The nose and mouth were suctioned with the bulb suction and cord clamped and cut. The was then handed off to the awaiting nurses and physician. The placenta was then removed manually. The uterus exteriorized and cleared of all clots and debris. The uterine incision was repaired with 1-0 chromic interlocked fashion. A second layer of the same suture was used to obtain excellent hemostasis. From this point the uterus is returned to the abdomen. The gutters were cleared of all clots and the peritoneal muscles were closed in interrupted fashion using 2-0 chromic suture. The fascia was reapproximated with 0 Vicryl in running fashion. The subcutaneous layer was closed with 3-0 plain suture. The skin was closed with absorbable geraldine called INSORB. The patient tolerated the procedure well. Sponge, lap, needle and instrument counts were correct x2. The patient was then taken to the recovery room in stable condition. The patient delivered a live baby boy at 0957 hours. 's were 8 at 1 minute and 9 at 5 minutes and the weight of the baby was 6 pounds 1 ounces.
[2020-05-21] MEDS: Colace 100 MG PO SCH ×2 (09:57→22:01)
[2020-05-21] MEDS ORDERED: FERREX 150 PO SCH (10:00)
--- NOTE | 2020-05-22 09:41 | PCM.NOTE ---
Date and Time: 05/22/20 0939 pod 2 sp csection pt resting in chair doing well anticipating to go home at this time pt ambulating and tolerating diet. vss afebrile abd; soft incision c/d/intact uterus; firm lochia; mild a/p sp csection pod 2 dc home today fu office in 2 wks OBJECTIVE DATA Vital Signs: Vital Signs - 24 hr Temp Pulse Resp BP Pulse Ox 05/22/20 04:00 97.9 F 78 18 105/55 96 05/21/20 21:00 98.0 F 90 18 108/51 05/21/20 14:00 97.6 F 89 16 121/60 97 05/21/20 11:00 97.6 F 86 18 110/53 98 05/21/20 10:00 98 Pain Assessment - Last Documented Pain Intensity [Anterior/ 1 Posterior] Pain Intensity 1 Intake and Output: Intake & Output 05/19/20 05/20/20 05/21/20 05/22/20 11:59 11:59 11:59 11:59 Intake Total 3604 960 Output Total 2475 Balance 1129 960 Weight 112.945 kg 112.945 kg Lab Results: Lab Results-Last 24 Hours 05/20/20 Range/Units 08:38 Hep Bs Antigen Negative (Negative)
--- NOTE | 2020-05-22 09:45 | PCM.DS ---
Discharge Summary Date of Admission: 05/20/20 08:08 Date of Discharge: may 22, 2020 Admitting Physician: EVETTE KHANNA DO Consults: Consults on Case 05/20/20 08:14 Notify Physician OF ADMISSION 05/20/20 14:57 Notify Anesthesia Provider PRN Primary Care Provider: HÉCTOR LEUNG Allergies Allergies No Known Drug Allergies Allergy (Verified 05/14/20 16:34) Hospital Summary - Hospital Course Hospital Course: pt admitted on may 20 for hx of previous csection x 3 with sudden onset pelvic pain during the night and co continued pelvic pain with threatned labor. pt subsequently underwent repeat csection on may 20 and did well postoperative. pts incision c/d/intact. pt at this time stable for discharge. pt had stable h/h prior to discharge at 10. pt was advised to fu in office in 2 wks for postop evaluation. all questions answered to her satisfaction as she did not require pain medication prior to discharge other than ibuprofen as she declined any narcotic use. - Vitals & Intake/Output Vital Signs: Vital Signs Temperature 97.9 F 05/22/20 04:00 Pulse Rate 78 05/22/20 04:00 Respiratory Rate 18 05/22/20 04:00 Blood Pressure 105/55 05/22/20 04:00 O2 Sat by Pulse Oximetry 96 05/22/20 04:00 Intake & Output: Intake & Output 05/19/20 05/20/20 05/21/20 05/22/20 11:59 11:59 11:59 11:59 Intake Total 3604 960 Output Total 2475 Balance 1129 960 Weight 112.945 kg 112.945 kg - Lab Result Diagrams: 05/21/20 04:30 Micro Results-Entire Visit: Microbiology 05/20/20 09:45 Urine Culture - Final Catherized NO GROWTH - Procedures and Test Procedures and Tests throughout Hospitalization: Therapy Orders & Screens 05/20/20 13:27 Standby ROUTINE Comment: Diagnosis: repeat sesarean section - Discharge Disposition: Home, Self-Care Condition: Stable Prescriptions: No Action Vits W-Ca,Fe,FA(<1Mg) [] 1 each PO HS Levothyroxine Sodium [Euthyrox] 25 mcg PO HS Aspirin 81 gm Chew [Baby Aspirin 81 mg Chew] 81 mg PO HS Follow up with: HÉCTOR LEUNG MD [Primary Care Provider] - EVETTE KHANNA DO [ACTIVE STAFF] - 2 weeks (keep incision clean and dry may take shower but no bath for 2 wks no intercourse for 6 wks no driving for 10 days) Forms: Work/School Release Form
[2020-05-22 10:30] VITALS: BP 114/60; PULSE 77; O2SAT 98
== END 2020-05-22 10:20 | disposition home or self-care (01) | DRG 786 ==
LOC: MED SURG 04:51 → OBSVTOIN 08:08
PROVIDERS: ADMIT Obstetrics & Gynecology; ATTEND Obstetrics & Gynecology
PROC: 10D00Z1 Extraction of Products of Conception, Low, Open Approach (ICD-10-PCS; principal; 2020-05-20)
PROC: 10D00Z1 Extraction of Products of Conception, Low, Open Approach (ICD-10-PCS; 2020-05-20)
DX: O34.211 Maternal care for low transverse scar from previous cesarean delivery (principal); O60.14X0 Preterm labor third trimester with preterm delivery third trimester, not applicable or unspecified; Z3A.36 36 weeks gestation of pregnancy; Z37.0 Single live birth; R10.2 Pelvic and perineal pain
CPT/HCPCS: 36415; 59514; 62322; 64488; 76937; 76942; 80307; 81001; 82947; 85025; 85027; 85610; 85730; 86850; 86900; 86901; 87086; 87340; 94799; J0690; J0702; J1650; J2274; J2370; J2405; J2590; A9270-GY

== ENCOUNTER 2021-05-29 18:09 | Emergency (ER) | payer OTHER ==
--- NOTE | 2021-05-29 18:38 | ERPHSYRPT ---
- History of Present Illness Time Seen by Provider: 05/29/21 18:20 Source: patient, family Exam Limitations: no limitations Patient Subjective Stated Complaint: PT states "I am 6 weeks and I started spotting a couple days ago it stopped then started spotting again yesterday and this morning I bled pretty heavily." Triage Nursing Assessment: -8. para-4. miscarraige-3 Physician History: 31-year-old 8 para 4 at almost 6 weeks gestation per LMP with a positive home test presented in the ER with off and on spotting for the last 4 days and since this morning having bright to dark blood per vaginal without any pelvic cramping/pain/pressure. Denies any dysuria, increased frequency urgency or hesitancy. Timing/Duration: day(s) (4), intermittent, gradual onset, worse Activites at Onset: rest Severity of Pain-Max: none Severity of Pain-Current: none Modifying Factors: Improves With: nothing Associated Symptoms: denies symptoms Allergies/Adverse Reactions: No Known Drug Allergies Allergy (Verified 05/14/20 16:34) Home Medications: Vits W-Ca,Fe,FA(<1Mg) [] 1 each PO HS 01/26/19 [History] Hx Tetanus, Diphtheria Vaccination/Date Given: Yes Hx Influenza Vaccination/Date Given: No Hx Pneumococcal Vaccination/Date Given: No Travel Risk - International Travel Have you traveled outside of the country in past 3 weeks: No - Coronavirus Screening Are you exhibiting any of the following symptoms?: No Close contact with a COVID-19 positive Pt in past 14-21 Days: No - Vaccine Status Have you recieved a Covid-19 vaccination: No - Review of Systems Constitutional: No Symptoms Ears, Nose, & Throat: No Symptoms Respiratory: No Symptoms Cardiac: No Symptoms Abdominal/Gastrointestinal: No Symptoms Genitourinary Symptoms: Vaginal Bleeding Musculoskeletal: No Symptoms Neurological: No Symptoms Hematologic/Lymphatic: No Symptoms Immunological/Allergic: No Symptoms - Past Medical History Pertinent Past Medical History: Yes Neurological History: No Pertinent History ENT History: No Pertinent History Cardiac History: No Pertinent History Respiratory History: No Pertinent History Endocrine Medical History: Other Musculoskeletal History: No Pertinent History GI Medical History: No Pertinent History History: No Pertinent History Psycho-Social History: Depression Female Reproductive Disorders: No Pertinent History Other Medical History: gestational diabetes. hypothyroid - Past Surgical History Past Surgical History: Yes Neuro Surgical History: No Pertinent History Cardiac: No Pertinent History Respiratory: No Pertinent History Gastrointestinal: No Pertinent History Musculoskeletal: No Pertinent History Female Surgical History: Section Other Surgical History: X3 - Social History Smoking Status: Never smoker Exposure to second hand smoke: No Drug Use: none Patient Lives Alone: No Significant Family History: ULCERS - Female History Hx Last Menstrual Period: 04/15/2021 Hx Now: Yes - Nursing Vital Signs Nursing Vital Signs: Initial Vital Signs Temperature 97.9 F 05/29/21 18:18 Pulse Rate 105 H 05/29/21 18:18 Respiratory Rate 20 05/29/21 18:18 Blood Pressure 143/71 05/29/21 18:18 O2 Sat by Pulse Oximetry 99 05/29/21 18:18 Pain Scale Pain Intensity 0 - Physical Exam General Appearance: no apparent distress, alert Eye Exam: PERRL/EOMI Neck Exam: normal inspection, full range of motion Respiratory Exam: normal breath sounds, lungs clear Cardiovascular Exam: regular rate/rhythm, normal heart sounds Gastrointestinal/Abdomen Exam: soft, normal bowel sounds, No tenderness Back Exam: normal inspection, normal range of motion Extremity Exam: normal inspection Neurologic Exam: alert, oriented x 3, cooperative Skin Exam: normal color SpO2 Interpretation: normal SpO2: 99 O2 Delivery: Room Air Ordered Tests: Active Orders 24 hr Category Date Time Status CULTURE,URINE Stat Lab 05/29/21 18:48 Received HCG, Quantitative (Inhouse) Stat Lab 05/29/21 18:45 Completed HCG,QUALITATIVE URINE Stat Lab 05/29/21 18:48 Completed Lab/Rad Data: Laboratory Results 05/29/21 05/29/21 05/29/21 Range/Units 18:48 18:48 18:45 Beta HCG, Quant mIU/ml Urinalys Dipstick Clnc MAIN LAB Urine Color RED (YELLOW) Urine Appearance CLEAR (CLEAR) Urine pH 7.0 (5-6) Ur Specific [place] 1.015 (1.005-1.025) POC Urine Protein Conf 100 (Negative) Urine Ketones NEGATIVE (NEGATIVE) Urine Nitrite NEGATIVE (NEGATIVE) Urine Bilirubin NEGATIVE (NEGATIVE) Urine Urobilinogen 0.2 (0-1) mg/dL Urine Leukocytes SMALL (NEGATIVE) Urine WBC (Auto) 11-15 (0-5) /HPF Urine RBC (Auto) >101 (0-2) /HPF U Epithel Cells (Auto) FEW (FEW) /HPF Urine Bacteria (Auto) RARE (NEGATIVE) /HPF Urine RBC LARGE (0-5) William/ul Urine Mucus (Auto) SLIGHT (NEGATIVE) /HPF Ur Culture Indicated? YES Urine Glucose NEGATIVE (NEGATIVE) mg/dL Urine HCG, Qual NEGATIVE (Negative) ABO Group A Rh Factor POSITIVE Antibody Screen NEGATIVE (NEGATIVE) 05/29/21 Range/Units 18:45 Beta HCG, Quant 2.95 mIU/ml Urinalys Dipstick Clnc Urine Color (YELLOW) Urine Appearance (CLEAR) Urine pH (5-6) Ur Specific [place] (1.005-1.025) POC Urine Protein Conf (Negative) Urine Ketones (NEGATIVE) Urine Nitrite (NEGATIVE) Urine Bilirubin (NEGATIVE) Urine Urobilinogen (0-1) mg/dL Urine Leukocytes (NEGATIVE) Urine WBC (Auto) (0-5) /HPF Urine RBC (Auto) (0-2) /HPF U Epithel Cells (Auto) (FEW) /HPF Urine Bacteria (Auto) (NEGATIVE) /HPF Urine RBC (0-5) William/ul Urine Mucus (Auto) (NEGATIVE) /HPF Ur Culture Indicated? Urine Glucose (NEGATIVE) mg/dL Urine HCG, Qual (Negative) ABO Group Rh Factor Antibody Screen (NEGATIVE) - Progress Progress: unchanged Air Movement: good Progress Note: 05/29/21 19:49 Patient has negative serum hCG quant and urine test. I believe she has irregular cycles. Recommended outpatient follow-up. Blood Culture(s) Obtained: No Antibiotics given: No Counseled pt/family regarding: lab results, diagnosis, need for follow-up - Departure Departure Disposition: Home Clinical Impression: Irregular menstrual cycle Condition: Stable Critical Care Time: No Referrals: HÉCTOR LEUNG MD [Primary Care Provider] - Follow Up with PCP/3 days Instructions: Absent or Irregular Periods Additional Instructions: Follow-up with primary care/SENIOR TECHNICAL TRAINER for reevaluation. Return to ER worsening bleeding/abdominal/pelvic pain etc.
[2021-05-29 19:02] LABS: Appearance CLEAR (CLEAR); Bilirubin NEGATIVE (NEGATIVE); Dipstick done @ ? MAIN LAB; Glucose NEGATIVE (NEGATIVE); Ketones NEGATIVE (NEGATIVE); Nitrite NEGATIVE (NEGATIVE); Protein,Urine Dip 100 (Negative); RBC LARGE Ery/ul (0-5); Specific Gravity 1.015 (1.005-1.025); Urobilinogen 0.2 mg/dL (0-1)
[2021-05-29 19:08] LABS: Bacteria RARE /HPF (NEGATIVE); Epithelial Cells FEW /HPF (FEW); Mucus SLIGHT /HPF (NEGATIVE); RBC >101 /HPF (0-2)
[2021-05-29 19:09] LABS: Urine Cultured Indicated? YES
[2021-05-29 19:32] VITALS: BP 128/66; PULSE 88
[2021-05-29 19:47] LABS: ABO TYPING A; RH TYPING POSITIVE
[2021-05-29 19:48] LABS: Antibody Screen NEGATIVE (NEGATIVE)
[2021-05-29 19:49] VITALS: O2SAT 99
== END 2021-05-29 20:00 | disposition home or self-care (01) ==
LOC: ED 18:09
DX: N92.6 Irregular menstruation, unspecified (principal)
CPT/HCPCS: 36415; 81015; 84702; 84703; 86850; 86900; 86901; 87086; 99283

== ENCOUNTER 2021-09-26 13:28 | Emergency (ER) | payer OTHER ==
[2021-09-26 13:52] VITALS: O2SAT 97
--- NOTE | 2021-09-26 14:05 | ERPHSYRPT ---
- History of Present Illness Source: patient Exam Limitations: no limitations Patient Subjective Stated Complaint: pt here for vaginal bleeding since the 4th, took a home test that was positve for Triage Nursing Assessment: pt alert, walked in,resp easy, face mask in place, skin w/d/p.abd soft Physician History: 31 yo WF [id number] w 2 positive home presents w vaginal spotting since 09/22/21 w heavier bleeding since 09/24/21. She has mild suprapubic pain. Fever/N/V/D/dysuria/hematuria all denied. Pt A+. Timing/Duration: other (09/22/21) Activites at Onset: rest Quality: cramping Onset Location: suprapubic Pain Radiation: none Severity of Pain-Max: mild Severity of Pain-Current: mild Prior abdominal problems: none Sexual intercourse history: other (States ) Modifying Factors: Improves With: nothing Allergies/Adverse Reactions: No Known Drug Allergies Allergy (Verified 09/26/21 13:46) Home Medications: No Reportable Medications [No Reported Medications] 09/26/21 [History] Hx Tetanus, Diphtheria Vaccination/Date Given: Yes Hx Influenza Vaccination/Date Given: No Hx Pneumococcal Vaccination/Date Given: No Travel Risk - International Travel Have you traveled outside of the country in past 3 weeks: No - Coronavirus Screening Are you exhibiting any of the following symptoms?: No Close contact with a COVID-19 positive Pt in past 14-21 Days: No - Vaccine Status Have you recieved a Covid-19 vaccination: No - Review of Systems Constitutional: No Symptoms Eyes: No Symptoms Ears, Nose, & Throat: No Symptoms Respiratory: No Symptoms Cardiac: No Symptoms Abdominal/Gastrointestinal: No Symptoms, Abdominal Pain Genitourinary Symptoms: No Symptoms, , Vaginal Bleeding Musculoskeletal: No Symptoms Skin: No Symptoms Neurological: No Symptoms Psychological: No Symptoms Endocrine: No Symptoms Hematologic/Lymphatic: No Symptoms Immunological/Allergic: No Symptoms - Past Medical History Pertinent Past Medical History: Yes Neurological History: No Pertinent History ENT History: No Pertinent History Cardiac History: No Pertinent History Respiratory History: No Pertinent History Endocrine Medical History: Other Musculoskeletal History: No Pertinent History GI Medical History: No Pertinent History History: No Pertinent History Psycho-Social History: Depression Female Reproductive Disorders: No Pertinent History Other Medical History: gestational diabetes. hypothyroid - Past Surgical History Past Surgical History: Yes Neuro Surgical History: No Pertinent History Cardiac: No Pertinent History Respiratory: No Pertinent History Gastrointestinal: No Pertinent History Musculoskeletal: No Pertinent History Female Surgical History: Section Other Surgical History: X3 - Social History Smoking Status: Never smoker Exposure to second hand smoke: No Drug Use: none Patient Lives Alone: No Significant Family History: no pertinent family hx - Female History Hx Last Menstrual Period: august 04 Hx Now: Yes - Nursing Vital Signs Nursing Vital Signs: Initial Vital Signs Temperature 98.0 F 09/26/21 13:46 Pulse Rate 107 H 09/26/21 13:46 Respiratory Rate 18 09/26/21 13:46 Blood Pressure 112/65 09/26/21 13:46 O2 Sat by Pulse Oximetry 97 09/26/21 13:46 Pain Scale Pain Intensity 2 Mildly tachy - Physical Exam General Appearance: no apparent distress Eye Exam: PERRL/EOMI, eyes nml inspection Ears, Nose, Throat Exam: normal ENT inspection, TMs normal, pharynx normal, moist mucous membranes Neck Exam: normal inspection, non-tender, supple, full range of motion, No meningismus, No mass, No Brudzinski, No Kernig's Respiratory Exam: normal breath sounds, lungs clear, airway intact Cardiovascular Exam: tachycardia (Mild), capillary refill <2 sec, No murmur Gastrointestinal/Abdomen Exam: soft, normal bowel sounds, tenderness (Mild suprapubic TTP wo guarding or rebound) Back Exam: normal inspection, normal range of motion, No CVA tenderness Extremity Exam: normal inspection, normal range of motion Neurologic Exam: alert, oriented x 3, cooperative, entry level paralegal II-XII nml as tested, normal mood/affect, sensation nml Skin Exam: normal color, warm, dry, No rash Lymphatic Exam: No adenopathy SpO2 Interpretation: normal SpO2: 97 O2 Delivery: Room Air - Course Nursing assessment & vital signs reviewed: Yes - Radiology Ultrasound Exam OB Ultrasound: discussed w/radiologist (No adnexal masses or IUP) Ordered Tests: Active Orders 24 hr Category Date Time Status OB <14 WKS 1ST GESTATION [US] Stat Exams 09/26/21 14:40 Completed CBC W DIFF Stat Lab 09/26/21 14:05 Completed HCG QUALITATIVE,SERUM Stat Lab 09/26/21 14:05 Completed HCG, Quantitative (Inhouse) Stat Lab 09/26/21 14:05 Completed Lab/Rad Data: Laboratory Result Diagrams 09/26/21 14:05 Laboratory Results 09/26/21 09/26/21 09/26/21 Range/Units 14:05 14:05 14:05 WBC 12.2 H (4.0-10.5) x10^3/uL RBC 4.25 (4.1-5.4) x10^6/uL Hgb 12.3 (12.0-16.0) g/dL Hct 37.4 (35-47) % MCV 88.0 (78-100) fL MCH 28.9 (26-32) pg MCHC 32.9 (32-36) g/dL RDW 14.6 H (11.5-14.0) % Plt Count 350 (150-450) x10^3/uL MPV 8.9 (7.5-11.0) fL Gran % 72.7 H (36.0-66.0) % Immature Gran % (Auto) 0.4 (0.00-0.4) % Nucleat RBC Rel Count 0.0 (0.00-0.1) % Eos # (Auto) 0.17 (0-0.5) x10^3/uL Immature Gran # (Auto) 0.05 H (0.00-0.03) x10^3u/L Absolute Lymphs (auto) 2.37 (1.0-4.6) x10^3/uL Absolute Monos (auto) 0.67 (0.0-1.3) x10^3/uL Absolute Nucleated RBC 0.00 (0.00-0.01) x10^3u/L Lymphocytes % 19.5 L (24.0-44.0) % Monocytes % 5.5 (0.0-12.0) % Eosinophils % 1.4 (0.00-5.0) % Basophils % 0.5 (0.0-0.4) % Absolute Granulocytes 8.86 H (1.4-6.9) x10^3/uL Basophils # 0.06 (0-0.4) x10^3/uL Beta HCG, Quant 133.43 mIU/ml Serum , Qual POSITIVE (Negative) - Progress Progress Note: 09/26/21 15:07 Pt has an appointment to see Dr. Martinez at 13:30 09/27/21 Pt alerted that most likely spontaneous AB but possibility of very early IUP still exists Quantitative Bhcg pending at discharge 09/27/21 01:04 Pt refused all pain meds during stay Counseled pt/family regarding: lab results, diagnosis, need for follow-up - Departure Departure Disposition: Home Clinical Impression: Spontaneous Condition: Stable Critical Care Time: No Referrals: HÉCTOR LEUNG MD [Primary Care Provider] - Follow up/PCP as directed Instructions: Bleeding in Early (DC) Additional Instructions: Follow up with Dr. Martinez tomorrow Return to ER if you soak through 4 pads in 1 hour
[2021-09-26 14:08] LABS: Absolute Neutrophil Ct (ANC) 8.86 x10^3/uL (1.4-6.9); Basophil (Absolute #) 0.06 x10^3/uL (0-0.4); Eosinophil % 1.4 % (0.00-5.0); Eosinophil (Absolute #) 0.17 x10^3/uL (0-0.5); Hematocrit 37.4 % (35-47); Hemoglobin 12.3 g/dL (12.0-16.0); Lymphocyte (Absolute #) 2.37 x10^3/uL (1.0-4.6); Lymphocytes % 19.5 % (24.0-44.0); Mean Corpuscular Hemoglobin 28.9 pg (26-32); Mean Corpuscular Hgb Concent. 32.9 g/dL (32-36); Mean Platelet Volume 8.9 fL (7.5-11.0); Monocyte (Absolute #) 0.67 x10^3/uL (0.0-1.3); Monocytes % 5.5 % (0.0-12.0); Neutrophil % 72.7 % (36.0-66.0); Platelet Count 350 x10^3/uL (150-450); Red Blood Count 4.25 x10^6/uL (4.1-5.4); Red Cell Distribution Width 14.6 % (11.5-14.0); White Blood Count 12.2 x10^3/uL (4.0-10.5)
--- NOTE | 2021-09-26 15:08 | XRAY ---
Indication: Bleeding. Two-dimensional transabdominal early OB ultrasound performed. Comparison: None Uterus anteverted without focal solid/cystic mass. No intrauterine gestational sac, pole, or heart tones. Both ovaries are sonographically unremarkable. No suspicious adnexal mass or free fluid. Impression: Negative early OB ultrasound. Correlate with serial beta hCG and follow-up sonogram regarding viability.
[2021-09-26 15:10] VITALS: BP 116/75; PULSE 88
== END 2021-09-26 15:25 | disposition home or self-care (01) ==
LOC: ED 13:28
DX: O03.9 Complete or unspecified spontaneous abortion without complication (principal); R10.2 Pelvic and perineal pain; Z28.310 Unvaccinated for COVID-19
CPT/HCPCS: 36415; 76801; 84702; 84703; 85025; 99283

== ENCOUNTER 2022-07-13 23:33 | Observation (INO) | payer OTHER ==
[2022-07-14 03:14] VITALS: PULSE 78
[2022-07-14 03:17] VITALS: BP 112/52
== END 2022-07-14 03:30 | disposition home or self-care (01) ==
LOC: OB 23:33
PROVIDERS: ADMIT Obstetrics & Gynecology; ATTEND Obstetrics & Gynecology
DX: Z34.83 Encounter for supervision of other normal pregnancy, third trimester (principal); Z3A.33 33 weeks gestation of pregnancy
CPT/HCPCS: 59025; 99213; G0378; G0379

== ENCOUNTER 2022-08-09 04:02 | Inpatient (IN) | payer OTHER ==
[~2022-08-09 04:02] MED LIST: Adacel Vial IM ONE; Ambien 10 MG PO PRN; Anucort-HC SUPPOSITORY PR PRN; BENADRYL 50 MG/ML IV PRN; CEFAZOLIN 2 GM-D5W BAG** 2 GM/50 ML ML IV SCH; CLARITIN 10 MG PO PRN; CORTISONE 1% CREAM TP PRN; DEMEROL 50 MG IV PRN; Dermoplast Spray TP PRN; Dulcolax 10 MG SUPP PR PRN; FERREX 150 PO SCH; HOLD NARCOTIC ANALGESICS AND SEDATIVES X24 HR MC PRN; LANSINOH 40 GM TOP PRN; Lactated Ringers 1,000 ML IV SCH; MORPHINE SULFATE 2 MG INJ IV PRN; Mylicon 80MG PO PRN; NORCO 5/325 MG PO PRN; Narcan 0.4 MG/ML IV PRN; Nubain 10 MG/ML IV PRN; PERCOCET TABLET 5/325MG PO PRN; Pepcid 20 MG VIAL IV SCH; Reglan 10 MG/2 ML IV SCH; SOD CITRATE-CITRIC ACID SOLN PO SCH; Sodium Chloride 0.9% 10 ML FLUSH Syringe IJ PRN; TUCKS TP PRN; Zofran 4 MG/2 ML VIAL IV PRN
[2022-08-09 04:47] LABS: Hematocrit 32.6 % (35-47); Hemoglobin 10.3 g/dL (12.0-16.0); Mean Cell Volume 83.8 fL (78-100); Mean Corpuscular Hemoglobin 26.5 pg (26-32); Mean Corpuscular Hgb Concent. 31.6 g/dL (32-36); Mean Platelet Volume 9.7 fL (7.5-11.0); Platelet Count 357 x10^3/uL (150-450); Red Blood Count 3.89 x10^6/uL (4.1-5.4); Red Cell Distribution Width 14.9 % (11.5-14.0); White Blood Count 11.6 x10^3/uL (4.0-10.5)
[2022-08-09 04:57] LABS: INR 0.91 (0.8-3.0); PTT 24.9 SECONDS (25.1-36.5)
[2022-08-09 04:58] LABS: Appearance Clear (Clear); Bacteria None Seen /HPF (None Seen); Bilirubin Negative (Negative); Blood Negative (Negative); Epithelial Cells Few /HPF (None Seen); Glucose, Urine Negative (Negative); Hyaline Casts NONE SEEN /LPF (0-2); Ketones 40 (Negative); Leukocyte Esterase Negative (Negative); Nitrite Negative (Negative); Protein,Urine Dip Negative (Negative); RBC 0-2 /HPF (0-5); WBC 0-2 /HPF (0-5)
[2022-08-09 05:09] LABS: Amphetamine,Urine NEGATIVE (NEGATIVE); Barbiturate,Urine NEGATIVE (NEGATIVE); Benzodiazepine,Urine NEGATIVE (NEGATIVE); Cocaine,Urine NEGATIVE (NEGATIVE); Methadone,Urine NEGATIVE (NEGATIVE); Opiate,Urine NEGATIVE (NEGATIVE); PCP,Urine NEGATIVE (NEGATIVE); THC,Urine NEGATIVE (NEGATIVE)
[2022-08-09 05:26] LABS: ADD URINE CULTURE? NO (NO)
[2022-08-09] MEDS: Lactated Ringers 1,000 ML IV ONE ×3 (05:27→12:22)
[2022-08-09 05:53] LABS: ABO TYPING A; Antibody Screen NEGATIVE (NEGATIVE); RH TYPING POSITIVE
[2022-08-09] MEDS ORDERED: Astramorph-Pf 5 MG/10 ML ONE (09:36)
[2022-08-09] MEDS ORDERED: PHENYLEPHRINE HCL ONE (10:05)
[2022-08-09] MEDS ORDERED: Pitocin 10 UNITS/ML ONE (10:07)
[2022-08-09] MEDS ORDERED: TORAdol 30 mg Injection ONE (10:08)
[2022-08-09] MEDS ORDERED: Zofran 4 MG/2 ML VIAL ONE (10:08)
[2022-08-09] MEDS ORDERED: Decadron 4 MG INJ ONE ×2 (10:10→10:13)
[2022-08-09] MEDS ORDERED: Marcaine 0.5%/Epinephrine 10 ML ONE (10:13)
[2022-08-09] MEDS ORDERED: DEXMEDETOMIDINE 80 MCG/20ML-NS IV ONE (10:13)
[2022-08-09] MEDS ORDERED: Lactated Ringers 1,000 ML IV ONE (10:23)
[2022-08-09] MEDS ORDERED: ENOXAPARIN SODIUM SQ ONE (12:00)
[2022-08-09 15:48] LABS: Appearance Clear (Clear); Bacteria None Seen /HPF (None Seen); Bilirubin Negative (Negative); Blood Negative (Negative); Epithelial Cells Few /HPF (None Seen); Glucose, Urine Negative (Negative); Ketones 40 (Negative); Leukocyte Esterase Negative (Negative); Nitrite Negative (Negative); Ph 6.5 (4.6-8.0); Protein,Urine Dip Trace (Negative); RBC 0-2 /HPF (0-5); Specific Gravity 1.025 (1.005-1.030)
[2022-08-09] MEDS: Dextrose 5%-Lr IV Solution 1000 ML 1,000 ML IV SCH (16:32)
[2022-08-09] MEDS: CEFAZOLIN 2 GM-D5W BAG** 2 GM/50 ML ML IV SCH (17:45)
[2022-08-09] MEDS: Docusate Sodium 100 MG PO SCH (22:11)
[2022-08-09] MEDS: MOTRIN 400 MG PO PRN (23:27)
[2022-08-10] MEDS: Dextrose 5%-Lr IV Solution 1000 ML 1,000 ML IV SCH (00:29)
[2022-08-10] MEDS: CEFAZOLIN 2 GM-D5W BAG** 2 GM/50 ML ML IV SCH (02:07)
[2022-08-10] MEDS: TYLENOL EXTRA STRENGTH 500 MG PO PRN ×2 (04:52→11:10)
[2022-08-10 05:58] LABS: BASOPHIL % 0.1 % (0.0-0.4); Basophil (Absolute #) 0.02 x10^3/uL (0-0.4); Eosinophil (Absolute #) 0 x10^3/uL (0-0.5); Hematocrit 28.4 % (35-47); Hemoglobin 9.1 g/dL (12.0-16.0); IMMATURE GRAN # 0.08 x10^3u/L (0.00-0.03); IMMATURE GRAN % 0.5 % (0.00-0.4); Lymphocyte (Absolute #) 2.04 x10^3/uL (1.0-4.6); Lymphocytes % 13.4 % (24.0-44.0); Mean Cell Volume 83.3 fL (78-100); Mean Corpuscular Hemoglobin 26.7 pg (26-32); Mean Platelet Volume 10.1 fL (7.5-11.0); Monocyte (Absolute #) 1.09 x10^3/uL (0.0-1.3); Monocytes % 7.2 % (0.0-12.0); Neutrophil % 78.8 % (36.0-66.0); Platelet Count 335 x10^3/uL (150-450); Red Blood Count 3.41 x10^6/uL (4.1-5.4); Red Cell Distribution Width 15.2 % (11.5-14.0); White Blood Count 15.2 x10^3/uL (4.0-10.5)
[2022-08-10] MEDS: Docusate Sodium 100 MG PO SCH ×2 (08:26→22:10)
--- NOTE | 2022-08-10 10:03 | PCM.NOTE ---
Date and Time: 08/10/22 1000 Subjective Assessment: pod 1 pt resting in bed and doing well. able to ambulate and tolerate diet. vss afebrile abd; soft incision c/d/intact uterus; firm lochia; mild hgb; 9.1 a/p sp csection pod 1 doing well flat affect and declines meds for depression will encourage ambulation desires discharge tomorrow Objective Exam Wound Assessment: Skin/Wound Assessment Wound/Incision Assessment Start: 08/09/22 20:39 Text: Status: Active Freq: Q6H Protocol: Document 08/10/22 08:00 SBD (Rec: 08/10/22 09:13 SBD [id number]) Wound/Incision Assessment Anterior Medial Abdomen Wound Assessment Shift Assessment Wound Type Incision Drainage Amount None Drainage Odor None/Absent General Appearance Well Approximated,Open to air OBJECTIVE DATA Vital Signs: Vital Signs - 24 hr Temp Pulse Resp BP BP Pulse Ox 08/10/22 08:00 97.6 F 71 112/58 08/10/22 07:00 97 08/10/22 06:00 98 08/10/22 05:30 97.6 F 71 16 112/58 97 08/10/22 05:00 98 08/10/22 04:00 98 08/10/22 03:00 97 08/10/22 02:15 98.1 F 64 16 103/51 98 08/10/22 02:00 97 08/10/22 01:00 97 08/10/22 00:00 97 08/09/22 23:00 94 L 08/09/22 22:00 96 08/09/22 21:00 97 08/09/22 20:00 98 F 70 18 95/49 97 08/09/22 18:58 95 08/09/22 18:00 97.6 F 71 16 113/58 97 08/09/22 17:00 97 08/09/22 16:00 94 L 08/09/22 15:00 96 08/09/22 14:30 97.6 F 71 119/57 94 L 08/09/22 14:00 97 08/09/22 13:00 97.6 F 71 18 120/57 96 08/09/22 12:25 97.6 F 80 20 94/52 96 08/09/22 12:05 97.6 F 80 97/50 97 08/09/22 11:50 97.6 F 77 16 99/52 96 08/09/22 11:38 96 08/09/22 11:35 77 20 106/53 96 08/09/22 11:20 90 18 109/52 109/52 96 Pain Assessment - Last Documented Pain Intensity [Bilateral 2 Lower] Pain Intensity 2 Pain Scale Used 0-10 Pain Scale Intake and Output: Intake & Output 08/07/22 08/08/22 08/09/22 08/10/22 11:59 11:59 11:59 11:59 Intake Total 5424 Output Total 1988 Balance 3435 Weight 108.862 kg Lab Results: Lab Results-Last 24 Hours 08/09/22 08/10/22 Range/Units 09:55 04:15 WBC 15.2 H (4.0-10.5) x10^3/uL RBC 3.41 L (4.1-5.4) x10^6/uL Hgb 9.1 L (12.0-16.0) g/dL Hct 28.4 L (35-47) % MCV 83.3 (78-100) fL MCH 26.7 (26-32) pg MCHC 32.0 (32-36) g/dL RDW 15.2 H (11.5-14.0) % Plt Count 335 (150-450) x10^3/uL MPV 10.1 (7.5-11.0) fL Gran % 78.8 H (36.0-66.0) % Immature Gran % (Auto) 0.5 H (0.00-0.4) % Nucleat RBC Rel Count 0.0 (0.00-0.1) % Eos # (Auto) 0 (0-0.5) x10^3/uL Immature Gran # (Auto) 0.08 H (0.00-0.03) x10^3u/L Absolute Lymphs (auto) 2.04 (1.0-4.6) x10^3/uL Absolute Monos (auto) 1.09 (0.0-1.3) x10^3/uL Absolute Nucleated RBC 0.00 (0.00-0.01) x10^3u/L Lymphocytes % 13.4 L (24.0-44.0) % Monocytes % 7.2 (0.0-12.0) % Eosinophils % 0.0 (0.00-5.0) % Basophils % 0.1 (0.0-0.4) % Absolute Granulocytes 12.00 H (1.4-6.9) x10^3/uL Basophils # 0.02 (0-0.4) x10^3/uL Urine Color Yellow (Yellow) Urine Appearance Clear (Clear) Urine pH 6.5 (4.6-8.0) Ur Specific [place] 1.025 (1.005-1.030) Urine Protein Trace A (Negative) Urine Glucose (UA) Negative (Negative) mg/dL Urine Ketones 40 A (Negative) Urine Blood Negative (Negative) Urine Nitrite Negative (Negative) Urine Bilirubin Negative (Negative) Urine Urobilinogen 1.0 A (0.2) mg/dL Ur Leukocyte Esterase Negative (Negative) U Hyaline Cast (Auto) 3-5 A (0-2) /LPF Urine Microscopic RBC 0-2 (0-5) /HPF Urine Microscopic WBC 11-20 A (0-5) /HPF Ur Epithelial Cells Few (None Seen) /HPF Urine Bacteria None Seen (None Seen) /HPF Multi-Disciplinary Progress Notes: Multi-Disciplinary Progress Notes 08/09/22 16:51 Respiratory Note by Linda Ventura To for delivery. Baby delivered by crying and moving upon delivery. Patient brought to warmer and dried. 1 minute is 6. Patient is weak crying and being stimulated. At approximately 1010 the baby becomes dusky and and limp, began giving PPV to baby with a Benjamín T with 100% O2 for approximately 30secs-1 minute. The baby became pink and began crying and tone was better. at 5 minutes is 5. 1017 CPAP of 5cm started due to patient having acrocyanosis and grunting with retractions. O2 sat increased to 95-97% with the CPAP.At 10 minutes is 7. 1019 CPAP withheld and patient is pink. At 1025 patient's O2 sats decreased to 76% and patient began retracting again along with grunting. CPAP placed back on patient. 1040 Patient moved to the nursery via warmer with CPAP. Initialized on 08/09/22 16:51 - END OF NOTE Assessment/Plan (1) Status post repeat low transverse section Current Visit: Yes Status: Acute Code(s): Z98.891 - HISTORY OF UTERINE SCAR FROM PREVIOUS SURGERY
[2022-08-10] MEDS: MOTRIN 400 MG PO PRN (13:21)
[2022-08-10 20:40] VITALS: O2SAT 98
[2022-08-11] MEDS: MOTRIN 400 MG PO PRN (04:51)
[2022-08-11 05:13] LABS: Absolute Neutrophil Ct (ANC) 6.71 x10^3/uL (1.4-6.9); BASOPHIL % 0.6 % (0.0-0.4); Basophil (Absolute #) 0.07 x10^3/uL (0-0.4); Eosinophil % 1.7 % (0.00-5.0); Eosinophil (Absolute #) 0.19 x10^3/uL (0-0.5); Hematocrit 28.2 % (35-47); Hemoglobin 8.6 g/dL (12.0-16.0); IMMATURE GRAN # 0.05 x10^3u/L (0.00-0.03); IMMATURE GRAN % 0.4 % (0.00-0.4); Lymphocyte (Absolute #) 3.77 x10^3/uL (1.0-4.6); Lymphocytes % 32.8 % (24.0-44.0); Mean Cell Volume 84.9 fL (78-100); Mean Corpuscular Hemoglobin 25.9 pg (26-32); Mean Corpuscular Hgb Concent. 30.5 g/dL (32-36); Mean Platelet Volume 9.9 fL (7.5-11.0); Monocyte (Absolute #) 0.72 x10^3/uL (0.0-1.3); Monocytes % 6.3 % (0.0-12.0); NUCLEATED RBC # 0.04 x10^3u/L (0.00-0.01); NUCLEATED RBC % 0.3 % (0.00-0.1); Neutrophil % 58.2 % (36.0-66.0); Platelet Count 317 x10^3/uL (150-450); Red Blood Count 3.32 x10^6/uL (4.1-5.4); Red Cell Distribution Width 15.2 % (11.5-14.0); White Blood Count 11.5 x10^3/uL (4.0-10.5)
--- NOTE | 2022-08-11 06:40 | PCM.NOTE ---
Date and Time: 08/11/22636 Subjective Assessment: pod 2 sp csection pt resting in chair and doing well able to ambulate and tolerate diet. vss afebrile abd; soft, incision c/d/intact uterus; firm lochia; mild hgb;8.7 a/p sp csecton pod 2 with anemia advised to take iron supplementation bid will dc home today should fu in office in 2 wks Objective Exam Wound Assessment: Skin/Wound Assessment Wound/Incision Assessment Start: 08/09/22 20:39 Text: Status: Active Freq: Q6H Protocol: Document 08/11/22 03:00 CH (Rec: 08/11/22 03:54 CH [id number]) Wound/Incision Assessment Anterior Medial Abdomen Wound Assessment Shift Assessment Wound Type Incision Dressing Status Dry & Intact Drainage Amount None General Appearance Clean/Dry OBJECTIVE DATA Vital Signs: Vital Signs - 24 hr Temp Pulse Resp BP Pulse Ox 08/11/22 04:00 98 F 80 16 107/53 98 08/11/22 02:00 16 08/10/22 20:00 98.9 F 81 16 118/58 98 08/10/22 14:00 97.6 F 79 108/63 99 08/10/22 13:00 97.6 F 79 108/63 99 08/10/22 10:00 98 08/10/22 08:00 97.6 F 71 112/58 08/10/22 07:00 97 Pain Assessment - Last Documented Pain Intensity [Bilateral 2 Lower] Pain Intensity 4 Pain Scale Used 0-10 Pain Scale Intake and Output: Intake & Output 08/08/22 08/09/22 08/10/22 08/11/22 11:59 11:59 11:59 11:59 Intake Total 5424 2200 Output Total 1988 Balance 3435 2200 Weight 108.862 kg Lab Results: Lab Results-Last 24 Hours 08/11/22 Range/Units 04:40 WBC 11.5 H (4.0-10.5) x10^3/uL RBC 3.32 L (4.1-5.4) x10^6/uL Hgb 8.6 L (12.0-16.0) g/dL Hct 28.2 L (35-47) % MCV 84.9 (78-100) fL MCH 25.9 L (26-32) pg MCHC 30.5 L (32-36) g/dL RDW 15.2 H (11.5-14.0) % Plt Count 317 (150-450) x10^3/uL MPV 9.9 (7.5-11.0) fL Gran % 58.2 (36.0-66.0) % Immature Gran % (Auto) 0.4 (0.00-0.4) % Nucleat RBC Rel Count 0.3 H (0.00-0.1) % Eos # (Auto) 0.19 (0-0.5) x10^3/uL Immature Gran # (Auto) 0.05 H (0.00-0.03) x10^3u/L Absolute Lymphs (auto) 3.77 (1.0-4.6) x10^3/uL Absolute Monos (auto) 0.72 (0.0-1.3) x10^3/uL Absolute Nucleated RBC 0.04 H (0.00-0.01) x10^3u/L Lymphocytes % 32.8 (24.0-44.0) % Monocytes % 6.3 (0.0-12.0) % Eosinophils % 1.7 (0.00-5.0) % Basophils % 0.6 (0.0-0.4) % Absolute Granulocytes 6.71 (1.4-6.9) x10^3/uL Basophils # 0.07 (0-0.4) x10^3/uL Assessment/Plan (1) Status post repeat low transverse section Current Visit: Yes Status: Acute Code(s): Z98.891 - HISTORY OF UTERINE SCAR FROM PREVIOUS SURGERY
--- NOTE | 2022-08-11 06:46 | PCM.DS ---
Discharge Summary Date of Admission: 08/09/22 04:02 Admitting Physician: EVETTE KHANNA DO Consults: Consults on Case 08/09/22 04:00 Notify Anesthesia Provider ROUTINE Notify Physician OF ADMISSION 08/09/22 14:55 Navigation ONCE Primary Care Provider: EVTETE KHANNA DO Allergies Allergies No Known Drug Allergies Allergy (Verified 08/09/22 04:21) Hospital Summary - Hospital Course Hospital Course: pt admitted on august 09 for repeat csection with tubal sterilization at 37 wks gesation secondary to having 4 previous csections and suspected thin lower uterine segment. it was discussed with m dr sims to proceed with repeat csection at this time due to suspected thin lower uterine segment. pt underwent procedure without complication and was noted having thin lower uterine segment and additionally had tubal sterilization. during the postop period did well was able to ambulate and tolerate diet. incision was clean and dry and had hgb at 8.7 prior to discharge and was stable and asymptomatic. pt advised to take iron supplementation twice daily and was advised to fu in office in 2 wks for postop evaluation. all questions answered to her satisfaction and desired ibuprofen for pain management. - Vitals & Intake/Output Vital Signs: Vital Signs Temperature 98 F 08/11/22 04:00 Pulse Rate 80 08/11/22 04:00 Respiratory Rate 16 08/11/22 04:00 Blood Pressure 107/53 08/11/22 04:00 O2 Sat by Pulse Oximetry 98 08/11/22 04:00 Intake & Output: Intake & Output 08/08/22 08/09/22 08/10/22 08/11/22 11:59 11:59 11:59 11:59 Intake Total 5424 2200 Output Total 1988 Balance 3435 2200 Weight 108.862 kg - Lab Result Diagrams: 08/11/22 04:40 Lab Results-Last 24 Hrs: Lab Results-Last 24 Hours 08/11/22 Range/Units 04:40 WBC 11.5 H (4.0-10.5) x10^3/uL RBC 3.32 L (4.1-5.4) x10^6/uL Hgb 8.6 L (12.0-16.0) g/dL Hct 28.2 L (35-47) % MCV 84.9 (78-100) fL MCH 25.9 L (26-32) pg MCHC 30.5 L (32-36) g/dL RDW 15.2 H (11.5-14.0) % Plt Count 317 (150-450) x10^3/uL MPV 9.9 (7.5-11.0) fL Gran % 58.2 (36.0-66.0) % Immature Gran % (Auto) 0.4 (0.00-0.4) % Nucleat RBC Rel Count 0.3 H (0.00-0.1) % Eos # (Auto) 0.19 (0-0.5) x10^3/uL Immature Gran # (Auto) 0.05 H (0.00-0.03) x10^3u/L Absolute Lymphs (auto) 3.77 (1.0-4.6) x10^3/uL Absolute Monos (auto) 0.72 (0.0-1.3) x10^3/uL Absolute Nucleated RBC 0.04 H (0.00-0.01) x10^3u/L Lymphocytes % 32.8 (24.0-44.0) % Monocytes % 6.3 (0.0-12.0) % Eosinophils % 1.7 (0.00-5.0) % Basophils % 0.6 (0.0-0.4) % Absolute Granulocytes 6.71 (1.4-6.9) x10^3/uL Basophils # 0.07 (0-0.4) x10^3/uL Micro Results-Entire Visit: Microbiology 08/09/22 09:55 Urine Culture - Preliminary Urine, Catheterized NO GROWTH TO DATE - Procedures and Test Procedures and Tests throughout Hospitalization: Therapy Orders & Screens 08/09/22 10:00 Standby STAT Comment: Diagnosis: IUP Discharge Exam Wound Assessment: Skin/Wound Assessment Wound/Incision Assessment Start: 08/09/22 20:39 Text: Status: Active Freq: Q6H Protocol: Document 08/11/22 03:00 CH (Rec: 08/11/22 03:54 CH [id number]) Wound/Incision Assessment Anterior Medial Abdomen Wound Assessment Shift Assessment Wound Type Incision Dressing Status Dry & Intact Drainage Amount None General Appearance Clean/Dry Final Diagnosis/Problem List - Final Discharge Diagnosis/Problem (1) Status post repeat low transverse section Current Visit: Yes Status: Acute Code(s): Z98.891 - HISTORY OF UTERINE SCAR FROM PREVIOUS SURGERY - Discharge Disposition: Home, Self-Care Condition: Stable Prescriptions: New Ferric Maltol [Accrufer] 30 mg PO BID #60 cap Ibuprofen 600 mg PO Q6HPRN PRN #46 tablet PRN Reason: Pain No Action Metformin HCl 500 mg [Glucophage 500 MG] 500 mg PO QHS Vit No.179/Iron/Folic [ Tablet] 1 tab PO QHS Follow up with: EVETTE KHANNA DO [Primary Care Provider] - 2 weeks
--- NOTE | 2022-08-11 08:16 | OP ---
SURGERY DATE/TIME: 08/09/2022 0936 PREOPERATIVE DIAGNOSES: 1) Intrauterine at 37 weeks gestation with previous section x4 with suspected thin lower uterine segment. 2) Multiparity desiring tubal sterilization. POSTOPERATIVE DIAGNOSIS: 1) Intrauterine at 37 weeks gestation with previous section x4 with suspected thin lower uterine segment. 2) Multiparity desiring tubal sterilization. PROCEDURES: 1) Repeat section, low flap transverse uterine incision, Pfannenstiel skin incision. 2) Bilateral tubal sterilization. SURGEON: Ernesto Martinez D.O. FURNITURE CLEANER: Carmen Li, surgical instrument repair specialist. ANESTHESIA: Spinal. QUANTITATIVE ESTIMATED BLOOD LOSS: 439 cc. COMPLICATIONS: None. INDICATIONS: The risks, benefits, indications and alternatives of the procedure were reviewed with the patient prior to procedure. The patient understood the risk of infection, bleeding, bowel injury, bladder injury, ureteral injury, uterine perforation, pelvic infection, thromboembolic disorder, possible ectopic in the future, menorrhagia as well. The patient understood all risks with the surgery and desires to have this surgery as a possible means to alleviate her current medical condition. DESCRIPTION OF PROCEDURE AND FINDINGS: At this point the patient is taken to the operating room where her spinal anesthesia was found to adequate. She was then prepared and draped in normal sterile fashion in the dorsal supine position with a leftward tilt. A Pfannenstiel skin incision is made with a scalpel and carried through to the underlying layer of the fascia with a Bovie. The fascia was then incised in the midline and the incision extended laterally with Carl scissors. The superior aspect of the fascial incision was then grasped Mundo clamps elevated and the underlying rectus muscles dissected off bluntly. Attention is then turned to the inferior aspect of this incision which in similar fashion was grasped, tented up with Mundo clamps and the rectus muscles dissected off bluntly. The rectus muscles were then in the midline and the peritoneum identified, tented up and entered sharply with Metzenbaum scissors. The peritoneal incision was then extended superiorly and inferiorly with good visualization of the bladder. The bladder blade was then inserted and at this point the patient was noted to have a very thin lower uterine segment. From this point the lower uterine segment was then incised in transverse fashion with a scalpel. The uterine incision was then extended laterally with bandage scissors. The bladder blade was then removed and the was then noted to be in breach presentation with the buttocks delivered first, subsequently the lower extremities, the upper extremities and finally the head. The nose and mouth were suctioned with bulb suction and the cord clamped and cut. The was then handed off to the awaiting nurses. The placenta was then removed manually. The uterus exteriorized and cleared of all clots and debris. The uterine incision was repaired with 1-0 chromic in running locked fashion. A second layer of the same suture was used to obtain excellent hemostasis. From this point a Rhonda clamp was then placed approximately 4 cm from the cornual region and a 3 cm segment of the tube was then ligated with free tie of plain gut and excised. The same procedure was performed on the right tube where the Rhonda clamp was placed 4 cm from the cornual region and the fallopian tube 3 cm segment of the tube was ligated with free tie of plain gut and excised as well. Good hemostasis was noted. From this point the uterus was then returned to the abdomen. The gutters were cleared of all clots and peritoneal muscles were closed in interrupted fashion using 2-0 chromic suture. The fascia was re-approximated with 0 Vicryl in a running fashion and the subcutaneous layer was closed with 3-0 Vicryl suture and the skin was closed with absorbable geraldine called INSORB. The patient tolerated the procedure well. Sponge, lap, needle and instrument counts were correct x2. The patient was then taken to the recovery room in stable condition. All instruments and laps were accounted for x2.
[2022-08-11 08:47] VITALS: BP 113/58; PULSE 81
== END 2022-08-11 10:10 | disposition home or self-care (01) | DRG 785 ==
LOC: OB 04:02 → OBSVTOIN 04:02
PROVIDERS: ADMIT Obstetrics & Gynecology; ATTEND Obstetrics & Gynecology
PROC: 10D00Z1 Extraction of Products of Conception, Low, Open Approach (ICD-10-PCS; principal; 2022-08-09)
PROC: 0U570ZZ Destruction of Bilateral Fallopian Tubes, Open Approach (ICD-10-PCS; 2022-08-09)
DX: O32.1XX0 Maternal care for breech presentation, not applicable or unspecified (principal); O34.219 Maternal care for unspecified type scar from previous cesarean delivery; D64.9 Anemia, unspecified; Z3A.37 37 weeks gestation of pregnancy; Z37.0 Single live birth; Z20.828 Contact with and (suspected) exposure to other viral communicable diseases; Z30.2 Encounter for sterilization
CPT/HCPCS: 36415; 58611; 59514; 64488; 76937; 76942; 80307; 81001; 85025; 85027; 85610; 85730; 86850; 86900; 86901; 87086; 90471; 90715; 94799; J0690; J1100; J1650; J1885; J2274; J2300; J2370; J2405; J2590; A9270-GY

== ENCOUNTER 2022-08-14 20:38 | Emergency (ER) | payer OTHER ==
--- NOTE | 2022-08-14 20:54 | ERPHSYRPT ---
- History of Present Illness Time Seen by Provider: 08/14/22 20:53 Historian: patient Exam Limitations: no limitations Physician History: This is a 32-year-old obese white female who is 5 days out from a repeat section performed by Dr. Martinez. Patient was doing well and became concerned today because she thought she felt a pulling stretching and possible tearing in the lower abdominal wall incision site. She also noticed a little blood present. She does not have severe abdominal/incisional pain. Her incisional pain has improved. She denies chest pain and she denies shortness of breath. She wanted her operative site incision evaluated. Timing/Duration: day(s) (5) Activities at Onset: none Quality: aching (Mild postoperative incisional) Pain Radiation: no radiation Severity of Pain-Max: mild Severity of Pain-Current: mild Modifying Factors: Improves With: movement (Brings upon mild achiness at the) Associated Symptoms: denies symptoms Previous symptoms: no prior history Allergies/Adverse Reactions: No Known Drug Allergies Allergy (Verified 08/14/22 20:59) Home Medications: Vit No.179/Iron/Folic [ Tablet] 1 tab PO QHS 07/06/22 [History] Hx Tetanus, Diphtheria Vaccination/Date Given: Yes Hx Influenza Vaccination/Date Given: No Hx Pneumococcal Vaccination/Date Given: No Travel Risk - International Travel Have you traveled outside of the country in past 3 weeks: No - Coronavirus Screening Are you exhibiting any of the following symptoms?: No Close contact with a COVID-19 positive Pt in past 14-21 Days: No - Vaccine Status Have you recieved a Covid-19 vaccination: No - Review of Systems Constitutional: No Symptoms Eyes: No Symptoms Ears, Nose, & Throat: No Symptoms Respiratory: No Symptoms Cardiac: No Symptoms Abdominal/Gastrointestinal: Abdominal Pain (Pfannenstiel incision with pain and possible drainage) Genitourinary Symptoms: No Symptoms Musculoskeletal: No Symptoms Skin: No Symptoms Neurological: No Symptoms Psychological: No Symptoms Endocrine: No Symptoms Hematologic/Lymphatic: No Symptoms Immunological/Allergic: No Symptoms All Other Systems: Reviewed and Negative - Past Medical History Pertinent Past Medical History: Yes Neurological History: No Pertinent History ENT History: No Pertinent History Cardiac History: No Pertinent History Respiratory History: No Pertinent History Endocrine Medical History: Other Musculoskeletal History: No Pertinent History GI Medical History: No Pertinent History History: No Pertinent History Psycho-Social History: Depression Female Reproductive Disorders: No Pertinent History Other Medical History: gestational diabetes - Past Surgical History Past Surgical History: Yes Neuro Surgical History: No Pertinent History Cardiac: No Pertinent History Respiratory: No Pertinent History Gastrointestinal: No Pertinent History Genitourinary: No Pertinent History Musculoskeletal: No Pertinent History Female Surgical History: Section Other Surgical History: X4 - Social History Smoking Status: Never smoker Exposure to second hand smoke: No Drug Use: none Patient Lives Alone: No Significant Family History: no pertinent family hx - Nursing Vital Signs Nursing Vital Signs: Initial Vital Signs Temperature 97.9 F 08/14/22 20:52 Pulse Rate 90 08/14/22 20:52 Respiratory Rate 18 08/14/22 20:52 Blood Pressure 114/66 08/14/22 20:52 O2 Sat by Pulse Oximetry 98 08/14/22 20:52 Pain Scale Pain Intensity 0 - Physical Exam General Appearance: no apparent distress, alert, anxiety, obese Eye Exam: PERRL/EOMI, eyes nml inspection Ears, Nose, Throat Exam: normal ENT inspection, moist mucous membranes Neck Exam: normal inspection, non-tender, supple, full range of motion Respiratory Exam: airway intact, No chest tenderness, No respiratory distress Gastrointestinal/Abdomen Exam: soft, normal bowel sounds, tenderness (Postoperative Pfannenstiel incision intact with typical postoperative incisional pain as expected.), other (No evidence of skin incision dehiscence or any type of drainage from the incision site) Pelvic Exam: not done Rectal Exam: not done Back Exam: normal inspection, normal range of motion, No CVA tenderness, No vertebral tenderness Extremity Exam: normal inspection, normal range of motion, pelvis stable Neurologic Exam: alert, oriented x 3, cooperative, clinical practice consultant II-XII nml as tested, normal mood/affect, nml cerebellar function, nml station & gait, sensation nml Skin Exam: normal color, warm, dry, other (Postoperative incision is clean dry and intact) Lymphatic Exam: No adenopathy SpO2 Interpretation: normal O2 Delivery: Room Air - Course Nursing assessment & vital signs reviewed: Yes - Progress Progress: unchanged Progress Note: 08/14/22 21:14 Patient's medical issues of low complexity. Level complexity and the work-up performed is based on review of the patient's past medical history, review the patient's medication list, review of the patient's drug allergy list, history of present illness and physical findings on examination. The patient does not require any laboratory or radiographic studies. The patient wanted her postoperative incision evaluated. Counseled pt/family regarding: diagnosis, need for follow-up Medical Desision Making - Independent Historian Additional History obtained from: Spouse - Diagnostic Testing Diagnostic test were ordered, analyzed, and reviewed by me: No - Risk of complications Minimal Risk: Minimal risk of morbidity - Departure Departure Disposition: Home Clinical Impression: Encounter for postoperative wound check Condition: Stable Critical Care Time: No Referrals: HÉCTOR LEUNG MD [Primary Care Provider] - Follow up/PCP as directed Additional Instructions: Make sure you wear your brace/abdominal binder as instructed. Follow your postoperative instructions with regard to lifting, bending twisting and activity level. Call your highway traffic control technician/surgeon tomorrow, 08/15/2022 and make them aware of your concern and your visit to the emergency department.
[2022-08-14 21:38] VITALS: BP 110/79; PULSE 72; O2SAT 97
== END 2022-08-14 21:38 | disposition home or self-care (01) ==
LOC: ED 20:38
DX: Z48.01 Encounter for change or removal of surgical wound dressing (principal); Z28.310 Unvaccinated for COVID-19
CPT/HCPCS: 99281